=== PATIENT | male | born 1930 | race Caucasian/White ===

== ENCOUNTER 2017-02-10 17:34 | Inpatient (IN) | payer MEDICARE ==
[2017-02-10] MEDS ORDERED: Sterile Water 10 ML ONE (18:27)
[2017-02-10] MEDS ORDERED: methylPREDNISolone Sod Succ/PF 125 MG/2 ML VIAL ONE (18:27)
[2017-02-10 18:32] LABS: #Basophils 0.1 thou/uL (0.0-0.2); #Eosinphils 0.5 thou/uL (0.0-0.7); #Lymphocytes 2.2 thou/uL (1.20-3.40); #Monocytes 1.6 thou/uL (0.11-0.59); #Neutrophils 9.4 thou/uL (1.40-6.50); %Basophils 0.5 % (0.0-1.0); %Eosinophils 3.6 % (0.0-10.0); %Lymphocytes 15.8 % (21.0-51.0); %Monocytes 11.6 % (0.0-10.0); Hematocrit 47.5 % (42.0-52.0); Mean Platelet Volume 6.2 fL (7.4-10.4); Red Blood Cell (RBC) Count 4.83 mill/uL (4.70-6.10); White Blood Cell (WBC) Count 13.6 thou/uL (4.8-10.8)
[2017-02-10 18:56] LABS: ALT (SGPT) 16 U/L (8-55); AST (SGOT) 23 U/L (5-34); Alkaline Phosphatase 117 U/L (40-150); Anion Gap 9 mmol/L (10-20); BUN (Urea Nitrogen) 15 mg/dL (8.4-25.7); Bilirubin, Total 0.8 mg/dL (0.2-1.2); CK (CPK) 22 U/L (30-200); Calc. Creatinine Clearance 0 mL/min (70-130); Carbon Dioxide 27 mmol/L (23-31); Chloride 102 mmol/L (98-107); Estimated GFR-MDRD Greater than 90; Globulin 3.1 g/dL (2.4-3.5); Protein, Total 6.3 g/dL (5.8-8.1)
[2017-02-10 19:01] LABS: Troponin I Less than 0.010 ng/mL (< 0.028)
--- NOTE | 2017-02-10 19:01 | RAD ---
AP CHEST: Date: 02-10-17 Comparison: 01-05-17 FINDINGS: AP chest demonstrates a dual-lead intracardiac pacing device. Cardiomegaly is seen. There is diffuse increased interstitial markings throughout the lungs, more prominent than on the pr evious comparison exam. This may represent interstitial edema or increasing interstitial changes. No evidence of effusions seen. No evidence of pneumothorax seen. There may be some diffuse airspace op acities also seen. IMPRESSION: Continued diffuse interstitial markings. This appears to have slightly increased since the previous comparison exam from approximately 1 month earlier. POS: [facility]
[2017-02-10] MEDS ORDERED: Albuterol Sulfate 2.5 mg/0.5 ml Neb ONE (19:22)
[2017-02-10] MEDS ORDERED: Albuterol Sulfate 2.5 mg/3 ml Neb ONE ×2 (19:23)
[2017-02-10] MEDS ORDERED: Levofloxacin 500 mg/D5W 100 ml Premix Bag ONE (21:04)
[2017-02-10] MEDS ORDERED: diphenhydrAMINE 25 MG CAP ONE (21:54)
[2017-02-10] MEDS ORDERED: HumaLOG 300 UNITS/3 ML VIAL SC PRN (23:26)
[2017-02-10] MEDS ORDERED: Dextrose 50% Abboject 50 ML SYRINGE SLOW IVP PRN (23:26)
[2017-02-10] MEDS ORDERED: Senokot 8.6 MG TAB PO PRN (23:26)
[2017-02-10] MEDS ORDERED: Ondansetron HCl/PF 4 MG/2 ML Vial IVP PRN (23:26)
[2017-02-10] MEDS ORDERED: Milk Of Magnesia 30 ML UDCUP PO PRN (23:26)
[2017-02-10] MEDS ORDERED: Zolpidem Tartrate 5 MG TAB PO PRN (23:26)
[2017-02-10] MEDS ORDERED: Hydrocortisone 1% Cream 1.5 GM Packet TOP PRN (23:26)
[2017-02-10] MEDS ORDERED: diphenhydrAMINE 25 MG CAP PO PRN (23:26)
[2017-02-10] MEDS ORDERED: Loperamide HCl 2 MG CAP PO PRN (23:26)
[2017-02-10] MEDS ORDERED: Dextrose 5% in Water 1,000 ML IV PRN (23:26)
[2017-02-10] MEDS ORDERED: Acetaminophen 325 MG TAB PO PRN (23:26)
[2017-02-10] MEDS ORDERED: Mag-Al 1200 mg/1200 mg/30 ML UDCUP PO PRN (23:26)
[2017-02-10] MEDS ORDERED: HYDROcodone/Acetaminophen 5/325 mg Tablet PO PRN (23:26)
[2017-02-11 00:10] VITALS: BMI 29.0
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
[2017-02-11] MEDS: Benzonatate 100 MG CAP PO PRN ×5 (02:03→21:34)
[2017-02-11 05:09] LABS: #Eosinphils 0.1 thou/uL (0.0-0.7); #Lymphocytes 0.8 thou/uL (1.20-3.40); #Monocytes 0.2 thou/uL (0.11-0.59); %Eosinophils 0.6 % (0.0-10.0); %Lymphocytes 5.8 % (21.0-51.0); %Monocytes 1.6 % (0.0-10.0); Hematocrit 47.3 % (42.0-52.0); Mean Platelet Volume 6.3 fL (7.4-10.4); Red Blood Cell (RBC) Count 4.77 mill/uL (4.70-6.10)
[2017-02-11 05:20] LABS: ALT (SGPT) 16 U/L (8-55); AST (SGOT) 26 U/L (5-34); Alkaline Phosphatase 117 U/L (40-150); Anion Gap 12 mmol/L (10-20); BUN (Urea Nitrogen) 15 mg/dL (8.4-25.7); Bilirubin, Total 0.7 mg/dL (0.2-1.2); Calc. Creatinine Clearance 96 mL/min (70-130); Calcium 9.2 mg/dL (7.8-10.44); Carbon Dioxide 24 mmol/L (23-31); Chloride 100 mmol/L (98-107); Estimated GFR-MDRD Greater than 90; Globulin 3.4 g/dL (2.4-3.5); Protein, Total 6.6 g/dL (5.8-8.1)
[2017-02-11] MEDS: Mometasone/Formoterol 120 PUFF INHALER INH SCH ×2 (06:30→20:01)
[2017-02-11] MEDS: Famotidine 20 MG TAB PO SCH ×2 (07:32→21:34)
[2017-02-11] MEDS: Enoxaparin Sodium 40 MG/0.4 ML SYRINGE SC SCH (07:32)
[2017-02-11] MEDS: guaiFENesin ER 600 MG TAB PO SCH ×2 (07:32→21:34)
[2017-02-11] MEDS: Tamsulosin HCl 0.4 MG CAP PO SCH (07:32)
[2017-02-11] MEDS: Cefepime 2 GM, Admixture Fee 1 EACH in Sodium Chloride 0.9% 100 ML IVPB SCH ×2 (08:33→22:18)
[2017-02-11] MEDS: Azithromycin 250 MG TAB PO SCH (08:49)
--- NOTE | 2017-02-11 10:19 | PDOC.PN ---
- Subjective Encounter Start Date: 02/11/17 Encounter Start Time: 08:40 Subjective: breathing better this morning -: no sob or wheezing now - Objective Resuscitation Status: Resuscitation Status FULL:Full Resuscitation MAR Reviewed: Yes Vital Signs & Weight: Vital Signs (12 hours) Temp Pulse Resp BP BP Pulse Ox 02/11/17 07:38 97.8 F 78 16 02/11/17 07:13 97.5 F L 80 16 132/82 91 L 02/11/17 06:30 78 16 95 02/11/17 04:00 97.8 F 79 18 126/73 93 L 02/11/17 01:26 63 18 92 L 02/11/17 00:18 97.8 F 73 22 H 02/11/17 00:00 97.8 F 73 22 H 96/59 L 93 L 02/10/17 23:26 92 L Weight Weight 220 lb I&O: 02/10/17 02/11/17 02/12/17 06:59 06:59 06:59 Intake Total 600 Balance 600 Result Diagrams: 02/11/17 04:54 02/11/17 04:54 Additional Labs: Accuchecks 02/11/17 03:20 POC Glucose 194 H Phys Exam - Physical Examination HEENT: PERRLA, moist MMs Neck: no JVD, supple Respiratory: no wheezing rhonchi+ Cardiovascular: RRR, no significant murmur Gastrointestinal: soft, non-tender, positive bowel sounds Musculoskeletal: no edema, pulses present Neurological: non-focal, moves all 4 limbs Psychiatric: A&O x 3 Dx/Plan (1) Acute and chronic respiratory failure with hypoxia Code(s): J96.21 - ACUTE AND CHRONIC RESPIRATORY FAILURE WITH HYPOXIA Status: Acute (2) Interstitial lung disease Code(s): J84.9 - INTERSTITIAL PULMONARY DISEASE, UNSPECIFIED Status: Chronic (3) DM type 2 (diabetes mellitus, type 2) Status: Chronic Qualifiers: Diabetes mellitus complication status: with unspecified complications Diabetes mellitus long term acute care registered nurse insulin use: without long term acute care registered nurse use Qualified Code( s): E11.8 - Type 2 diabetes mellitus with unspecified complications (4) HTN (hypertension) Code(s): I10 - ESSENTIAL (PRIMARY) HYPERTENSION Status: Chronic Qualifiers: Hypertension type: essential hypertension Qualified Code(s): I10 - Essential (primary) hypertension (5) CAD (coronary artery disease) Code(s): I25.10 - ATHSCL HEART DISEASE OF [place] CORONARY ARTERY W/O ANG PCTRS Status: Chronic Qualifiers: Coronary Disease-Associated Artery/Lesion type: [place] artery [place] vs. transplanted heart: [place] heart Associated angina: without angina Qualified Code(s): I25.10 - Atherosclerotic heart disease of [place] coronary artery without angina pectoris (6) Dyslipidemia Code(s): E78.5 - HYPERLIPIDEMIA, UNSPECIFIED Status: Chronic (7) Pacemaker Code(s): Z95.0 - PRESENCE OF CARDIAC PACEMAKER Status: Chronic - Plan is on cefepime -: duonebs, solumedrol iv q6h -: echo, pulm consultation -: to ambulate as tolerated -: is currently on nasal canula * . Review of Systems - Medications/Allergies Allergies/Adverse Reactions: Allergies Allergy/AdvReac Type Severity Reaction Status Date / Time penicillin G Allergy Unverified 02/10/17 23:37 Medications: Current Medications Acetaminophen (Tylenol) 650 mg PO Q4H PRN PRN Reason: Headache/Fever or Pain Hydrocodone Bitart/Acetaminophen ([place] 5/325) 1 tab PO Q4H PRN PRN Reason: Moderate Pain (4-6) Al Hydroxide/Mg Hydroxide (Maalox) 30 ml PO Q6H PRN PRN Reason: Heartburn or Indigestion Albuterol/Ipratropium (Duoneb) 3 ml NEB [id number] [facility] Last Admin: 02/11/17 06:30 Dose: 3 ml Aspirin (Aspirin Chewable) 81 mg PO DAILY [facility] Last Admin: 02/11/17 07:32 Dose: 81 mg Azithromycin (Zithromax) 250 mg PO DAILY [facility] Stop: 02/14/17 09:01 Last Admin: 02/11/17 08:49 Dose: 250 mg Benzonatate (Tessalon) 100 mg PO Q4H PRN PRN Reason: Cough Last Admin: 02/11/17 08:42 Dose: 100 mg Dextrose/Water (Dextrose 50%) 25 gm SLOW IVP PRN PRN PRN Reason: Hypoglycemia Diphenhydramine HCl (Benadryl) 25 mg PO Q6H PRN PRN Reason: Itching & Insomnia Enoxaparin Sodium (Lovenox) 40 mg SC 0900 [facility] Last Admin: 02/11/17 07:32 Dose: 40 mg Famotidine (Pepcid) 20 mg PO BID [facility] Last Admin: 02/11/17 07:32 Dose: 20 mg Glucagon (Glucagon) 1 mg IM PRN PRN PRN Reason: Hypoglycemia Guaifenesin (Mucinex) 600 mg PO Q12HR [facility] Last Admin: 02/11/17 07:32 Dose: 600 mg Hydrocortisone Sodium Succinate (Hydrocortisone 1%) 1.5 gm TOP BIDPRN PRN PRN Reason: Allergies Cefepime HCl 2 gm/Miscellaneous Medication 1 each/ Sodium Chloride 100 mls @ 200 mls/hr IVPB Q12HR [facility] Last Admin: 02/11/17 08:33 Dose: 100 mls Dextrose/Water (D5w) 1,000 mls @ 0 mls/hr IV .Q0M PRN; As Directed PRN Reason: Hypoglycemia Insulin Human Lispro (Humalog) 0 units SC .MODERATE SLIDING SC PRN PRN Reason: Moderate Correctional Scale Insulin Human Lispro (Humalog) 0 units SC .BEDTIME SLIDING SC PRN PRN Reason: Bedtime Correctional Scale Loperamide HCl (Imodium) 2 mg PO PRN PRN PRN Reason: Diarrhea/Loose Stools Magnesium Hydroxide (Milk Of Magnesium) 30 ml PO DAILYPRN PRN PRN Reason: Constipation Methylprednisolone Sodium Succinate (Solu-Medrol) 40 mg IVP Q6HR [facility] Last Admin: 02/11/17 05:59 Dose: 40 mg Mometasone Furoate/Formoterol Fumar (Dulera 200 Mcg/5 Mcg Inhaler) 2 puff INH BID-RT [facility] Last Admin: 02/11/17 06:30 Dose: 2 puff Ondansetron HCl (Zofran Odt) 4 mg PO Q6H PRN PRN Reason: Nausea/Vomiting Ondansetron HCl (Zofran) 4 mg IVP Q6H PRN PRN Reason: Nausea/Vomiting Pravastatin Sodium (Pravachol) 80 mg PO HS [facility] Senna (Senokot) 2 tab PO HSPRN PRN PRN Reason: Constipation Sodium Chloride (Flush - Normal Saline) 10 ml IVF Q12HR [facility] Last Admin: 02/11/17 08:49 Dose: 10 ml Sodium Chloride (Flush - Normal Saline) 10 ml IVF PRN PRN PRN Reason: Saline Flush Tamsulosin HCl (Flomax) 0.4 mg PO DAILY [facility] Last Admin: 02/11/17 07:32 Dose: 0.4 mg Zolpidem Tartrate (Ambien) 5 mg PO HSPRN PRN PRN Reason: Insomnia
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
[2017-02-11] MEDS: Ondansetron ODT 4 MG TAB PO PRN (17:10)
[2017-02-11] MEDS: Pravastatin Sodium 40 MG TAB PO SCH (21:34)
[2017-02-12] MEDS: Mometasone/Formoterol 120 PUFF INHALER INH SCH ×2 (07:10→18:32)
[2017-02-12] MEDS: Tamsulosin HCl 0.4 MG CAP PO SCH (07:51)
[2017-02-12] MEDS: Famotidine 20 MG TAB PO SCH ×2 (07:51→19:56)
[2017-02-12] MEDS: guaiFENesin ER 600 MG TAB PO SCH ×2 (07:51→19:56)
[2017-02-12] MEDS: Enoxaparin Sodium 40 MG/0.4 ML SYRINGE SC SCH (07:51)
[2017-02-12] MEDS: Azithromycin 250 MG TAB PO SCH (07:51)
[2017-02-12] MEDS: Benzonatate 100 MG CAP PO PRN (07:51)
[2017-02-12] MEDS: Cefepime 2 GM, Admixture Fee 1 EACH in Sodium Chloride 0.9% 100 ML IVPB SCH ×2 (09:09→19:57)
--- NOTE | 2017-02-12 10:36 | PDOC.PN ---
- Subjective Encounter Start Date: 02/12/17 Encounter Start Time: 07:15 Subjective: at bedside, he had rough night with acting out -: wants to know if steroids could be reduced -: pt is awake, not in distress - Objective Resuscitation Status: Resuscitation Status FULL:Full Resuscitation MAR Reviewed: Yes Vital Signs & Weight: Vital Signs (12 hours) Temp Pulse Resp BP BP Pulse Ox 02/12/17 08:00 97.4 F L 98 18 02/12/17 07:28 97.4 F L 98 18 109/69 97 02/12/17 07:10 84 16 93 L 02/12/17 07:09 84 16 93 L 02/12/17 05:48 97.5 F L 84 24 H 102/61 97 02/12/17 04:00 97.6 F 79 18 102/53 L 94 L 02/12/17 03:27 90 L 02/12/17 02:20 80 16 93 L 02/12/17 00:45 86 20 91 L 02/11/17 23:02 78 16 88 L Weight Weight 220 lb I&O: 02/11/17 02/12/17 02/13/17 06:59 06:59 06:59 Intake Total 600 700 Balance 600 700 Result Diagrams: 02/11/17 04:54 02/11/17 04:54 Additional Labs: Accuchecks 02/12/17 02/11/17 02/11/17 04:24 19:18 16:53 POC Glucose 221 H 242 H 287 H 02/11/17 11:05 POC Glucose 200 H Phys Exam - Physical Examination HEENT: PERRLA, moist MMs Neck: no JVD, supple Respiratory: no wheezing, no rales rhonchi+ Cardiovascular: RRR, no significant murmur Gastrointestinal: soft, non-tender, positive bowel sounds Musculoskeletal: no edema, pulses present Neurological: non-focal, moves all 4 limbs Dx/Plan (1) Acute and chronic respiratory failure with hypoxia Code(s): J96.21 - ACUTE AND CHRONIC RESPIRATORY FAILURE WITH HYPOXIA Status: Acute (2) Interstitial lung disease Code(s): J84.9 - INTERSTITIAL PULMONARY DISEASE, UNSPECIFIED Status: Chronic (3) DM type 2 (diabetes mellitus, type 2) Status: Chronic Qualifiers: Diabetes mellitus complication status: with unspecified complications Diabetes mellitus skilled nursing insulin use: without skilled nursing use Qualified Code( s): E11.8 - Type 2 diabetes mellitus with unspecified complications (4) HTN (hypertension) Code(s): I10 - ESSENTIAL (PRIMARY) HYPERTENSION Status: Chronic Qualifiers: Hypertension type: essential hypertension Qualified Code(s): I10 - Essential (primary) hypertension (5) CAD (coronary artery disease) Code(s): I25.10 - ATHSCL HEART DISEASE OF [place] CORONARY ARTERY W/O ANG PCTRS Status: Chronic Qualifiers: Coronary Disease-Associated Artery/Lesion type: [place] artery [place] vs. transplanted heart: [place] heart Associated angina: without angina Qualified Code(s): I25.10 - Atherosclerotic heart disease of [place] coronary artery without angina pectoris (6) Dyslipidemia Code(s): E78.5 - HYPERLIPIDEMIA, UNSPECIFIED Status: Chronic (7) Pacemaker Code(s): Z95.0 - PRESENCE OF CARDIAC PACEMAKER Status: Chronic - Plan on oral prednisone -: to amb with PT as tolerated -: duonebs, is on zithromax and cefepime -: low flow oxygen -: appears to have sun downing in addition to possible med effects * . Review of Systems - Medications/Allergies Allergies/Adverse Reactions: Allergies Allergy/AdvReac Type Severity Reaction Status Date / Time penicillin G Allergy Verified 02/11/17 21:34 Penicillins Allergy Verified 01/05/17 20:12 Medications: Current Medications Acetaminophen (Tylenol) 650 mg PO Q4H PRN PRN Reason: Headache/Fever or Pain Last Admin: 02/11/17 22:23 Dose: 650 mg Hydrocodone Bitart/Acetaminophen ([place] 5/325) 1 tab PO Q4H PRN PRN Reason: Moderate Pain (4-6) Al Hydroxide/Mg Hydroxide (Maalox) 30 ml PO Q6H PRN PRN Reason: Heartburn or Indigestion Albuterol/Ipratropium (Duoneb) 3 ml NEB [id number] [facility] Last Admin: 02/12/17 07:09 Dose: 3 ml Aspirin (Aspirin Chewable) 81 mg PO DAILY [facility] Last Admin: 02/12/17 07:51 Dose: 81 mg Azithromycin (Zithromax) 250 mg PO DAILY [facility] Stop: 02/14/17 09:01 Last Admin: 02/12/17 07:51 Dose: 250 mg Benzonatate (Tessalon) 100 mg PO Q4H PRN PRN Reason: Cough Last Admin: 02/12/17 07:51 Dose: 100 mg Dextrose/Water (Dextrose 50%) 25 gm SLOW IVP PRN PRN PRN Reason: Hypoglycemia Diphenhydramine HCl (Benadryl) 25 mg PO Q6H PRN PRN Reason: Itching & Insomnia Enoxaparin Sodium (Lovenox) 40 mg SC 0900 [facility] Last Admin: 02/12/17 07:51 Dose: 40 mg Famotidine (Pepcid) 20 mg PO BID [facility] Last Admin: 02/12/17 07:51 Dose: 20 mg Glucagon (Glucagon) 1 mg IM PRN PRN PRN Reason: Hypoglycemia Guaifenesin (Mucinex) 600 mg PO Q12HR [facility] Last Admin: 02/12/17 07:51 Dose: 600 mg Hydrocortisone Sodium Succinate (Hydrocortisone 1%) 1.5 gm TOP BIDPRN PRN PRN Reason: Allergies Cefepime HCl 2 gm/Miscellaneous Medication 1 each/ Sodium Chloride 100 mls @ 200 mls/hr IVPB Q12HR [facility] Last Admin: 02/12/17 09:09 Dose: 100 mls Dextrose/Water (D5w) 1,000 mls @ 0 mls/hr IV .Q0M PRN; As Directed PRN Reason: Hypoglycemia Insulin Human Lispro (Humalog) 0 units SC .MODERATE SLIDING SC PRN PRN Reason: Moderate Correctional Scale Insulin Human Lispro (Humalog) 0 units SC .BEDTIME SLIDING SC PRN PRN Reason: Bedtime Correctional Scale Loperamide HCl (Imodium) 2 mg PO PRN PRN PRN Reason: Diarrhea/Loose Stools Magnesium Hydroxide (Milk Of Magnesium) 30 ml PO DAILYPRN PRN PRN Reason: Constipation Mometasone Furoate/Formoterol Fumar (Dulera 200 Mcg/5 Mcg Inhaler) 2 puff INH BID-RT [facility] Last Admin: 02/12/17 07:10 Dose: 2 puff Ondansetron HCl (Zofran Odt) 4 mg PO Q6H PRN PRN Reason: Nausea/Vomiting Last Admin: 02/11/17 17:10 Dose: 4 mg Ondansetron HCl (Zofran) 4 mg IVP Q6H PRN PRN Reason: Nausea/Vomiting Pravastatin Sodium (Pravachol) 80 mg PO HS [facility] Last Admin: 02/11/17 21:34 Dose: 80 mg Prednisone (Prednisone) 20 mg PO QAM-WM [facility] Senna (Senokot) 2 tab PO HSPRN PRN PRN Reason: Constipation Sodium Chloride (Flush - Normal Saline) 10 ml IVF Q12HR [facility] Last Admin: 02/12/17 09:04 Dose: 10 ml Sodium Chloride (Flush - Normal Saline) 10 ml IVF PRN PRN PRN Reason: Saline Flush Tamsulosin HCl (Flomax) 0.4 mg PO DAILY [facility] Last Admin: 02/12/17 07:51 Dose: 0.4 mg Zolpidem Tartrate (Ambien) 5 mg PO HSPRN PRN PRN Reason: Insomnia
[2017-02-12] MEDS ORDERED: Furosemide 40 MG/4 ML VIAL SLOW IVP SCH (14:45)
--- NOTE | 2017-02-12 15:06 | PRG ---
DATE OF SERVICE: 02/13/2017 SERVICE: Pulmonary Medicine. INTERVAL HISTORY: The patient is doing okay from a respiratory standpoint. He is yet to be too ter ribly active. At home, he had horrendous dyspnea whenever he did make small movements. He currentl y denies any fevers, chills, nausea or vomiting. He is coughing up pale yellow mucus. PHYSICAL EXAMINATION: VITAL SIGNS: Afebrile, pulse 85, blood pressure 109/69, respirations 16, saturation 96% on 3 liters nasal cannula. GENERAL: The patient is awake and alert, in no apparent distress. LUNGS: Bilateral crackles are present. This is both anterior and posterior. No prolonged expirato ry phase or wheezing is appreciated. HEART: Normal rate, irregular. ABDOMEN: Soft, nontender, and nondistended. Bowel sounds positive. MUSCULOSKELETAL: No cyanosis or clubbing. Minimal edema in the bilateral lower extremities is pres ent. GENITOURINARY: No [place]. NEUROLOGIC: Grossly nonfocal. LABORATORY DATA: WBC 13.0, hemoglobin 15.9, and platelets 167,000. BNP 118. Basic metabolic profi le and liver function studies were previously unremarkable. Blood sugar ranges from 200-287. ASSESSMENT: 1. Acute on chronic hypoxic respiratory failure. 2. Interstitial lung disease, suspect idiopathic pulmonary fibrosis with acute exacerbation. 3. Chronic diastolic heart failure. PLAN: The patient will continue antibiotics and steroid therapy. Oxygen to keep saturations greate r than 88%. We will get physical therapy involved and see if we can get the patient moving to make certain, he does not develop any deconditioning while he is here. I will provide him with 1 dose of Lasix today.
[2017-02-12] MEDS: Pravastatin Sodium 40 MG TAB PO SCH (19:56)
[2017-02-13] MEDS: Mometasone/Formoterol 120 PUFF INHALER INH SCH ×2 (06:23→19:20)
[2017-02-13] MEDS ORDERED: predniSONE 20 MG TAB PO SCH (08:00)
[2017-02-13] MEDS: Tamsulosin HCl 0.4 MG CAP PO SCH ×2 (10:09→14:18)
[2017-02-13] MEDS: predniSONE 20 MG TAB PO SCH ×2 (10:10→14:16)
[2017-02-13] MEDS: Famotidine 20 MG TAB PO SCH ×3 (10:11→20:24)
[2017-02-13] MEDS: Ondansetron ODT 4 MG TAB PO PRN (10:11)
[2017-02-13] MEDS: Azithromycin 250 MG TAB PO SCH ×2 (10:11→14:17)
[2017-02-13] MEDS: Furosemide 40 MG/4 ML VIAL SLOW IVP SCH (10:13)
[2017-02-13] MEDS: Enoxaparin Sodium 40 MG/0.4 ML SYRINGE SC SCH ×2 (10:13→14:17)
[2017-02-13] MEDS: Cefepime 2 GM, Admixture Fee 1 EACH in Sodium Chloride 0.9% 100 ML IVPB SCH ×2 (10:13→20:23)
--- NOTE | 2017-02-13 12:01 | PDOC.PN ---
- Subjective Encounter Start Date: 02/13/17 Encounter Start Time: 08:20 -: old records requested/rev Patient seen and examined. No new complaints. No overnight events - Objective Resuscitation Status: Resuscitation Status FULL:Full Resuscitation MAR Reviewed: Yes Vital Signs & Weight: Vital Signs (12 hours) Temp Pulse Resp BP Pulse Ox 02/13/17 11:34 97.8 F 86 22 H 158/83 H 89 L 02/13/17 09:35 75 20 92 L 02/13/17 07:40 97.9 F 88 20 129/59 L 92 L 02/13/17 06:23 81 18 91 L 02/13/17 06:19 81 18 91 L 02/13/17 02:33 96 Weight Weight 220 lb I&O: 02/12/17 02/13/17 02/14/17 06:59 06:59 06:59 Intake Total 700 300 120 Output Total 1800 800 Balance 700 -1500 -680 Result Diagrams: 02/11/17 04:54 02/11/17 04:54 Additional Labs: Accuchecks 02/13/17 02/13/17 02/12/17 11:15 05:01 19:24 POC Glucose 118 H 123 H 139 H 02/12/17 16:42 POC Glucose 185 H Phys Exam - Physical Examination Constitutional: NAD HEENT: PERRLA, moist MMs, sclera anicteric Neck: no JVD, supple Respiratory: no wheezing, no rhonchi basal rales Cardiovascular: RRR, no significant murmur, no rub Gastrointestinal: soft, non-tender, no distention, positive bowel sounds Musculoskeletal: no edema, pulses present Neurological: non-focal, normal sensation Lymphatic: no nodes Psychiatric: normal affect, A&O x 3 Skin: no rash, normal turgor Dx/Plan (1) Acute and chronic respiratory failure with hypoxia Code(s): J96.21 - ACUTE AND CHRONIC RESPIRATORY FAILURE WITH HYPOXIA Status: Acute (2) CAD (coronary artery disease) Code(s): I25.10 - ATHSCL HEART DISEASE OF [place] CORONARY ARTERY W/O ANG PCTRS Status: Chronic Qualifiers: Coronary Disease-Associated Artery/Lesion type: [place] artery [place] vs. transplanted heart: [place] heart Associated angina: without angina Qualified Code(s): I25.10 - Atherosclerotic heart disease of [place] coronary artery without angina pectoris (3) Chronic diastolic (congestive) heart failure Code(s): I50.32 - CHRONIC DIASTOLIC (CONGESTIVE) HEART FAILURE Status: Chronic (4) DM type 2 (diabetes mellitus, type 2) Status: Chronic Qualifiers: Diabetes mellitus complication status: with unspecified complications Diabetes mellitus usp insulin use: without salvage determiner use Qualified Code( s): E11.8 - Type 2 diabetes mellitus with unspecified complications (5) Dyslipidemia Code(s): E78.5 - HYPERLIPIDEMIA, UNSPECIFIED Status: Chronic (6) HTN (hypertension) Code(s): I10 - ESSENTIAL (PRIMARY) HYPERTENSION Status: Chronic Qualifiers: Hypertension type: essential hypertension Qualified Code(s): I10 - Essential (primary) hypertension (7) Interstitial lung disease Code(s): J84.9 - INTERSTITIAL PULMONARY DISEASE, UNSPECIFIED Status: Chronic (8) Pacemaker Code(s): Z95.0 - PRESENCE OF CARDIAC PACEMAKER Status: Chronic - Plan cont current plan of care, continue antibiotics, respiratory therapy * steroid changed to po prednisone * continue oxygen * continue PT * medication reviewed as below * symptomatic treatment * pt does not want to go to SNU on discharge * slowly improving to baseline. * continue cefepime and azithromycin Review of Systems - Review of Systems Constitutional: Weakness. negative: Fever, Chills, Sweats, Malaise, Other Respiratory: Cough, Shortness of Breath. negative: Dry, Hemoptysis, SOB with Excertion, Pleuritic Pain, Sputum, Wheezing Cardiovascular: negative: Chest Pain, Palpitations, Orthopnea, Paroxysmal Noc. Dyspnea, Edema, Light Headedness, Other Gastrointestinal: negative: Nausea, Vomiting, Abdominal Pain, Diarrhea, Constipation, Melena, Hematochezia, Other Genitourinary: negative: Dysuria, Frequency, Incontinence, Hematuria, Retention , Other Musculoskeletal: negative: Neck Pain, Shoulder Pain, Arm Pain, Back Pain, Hand Pain, Leg Pain, Foot Pain, Other Skin: negative: Rash, Lesions, Vishal, Bruising, Other - Medications/Allergies Allergies/Adverse Reactions: Allergies Allergy/AdvReac Type Severity Reaction Status Date / Time penicillin G Allergy Verified 02/11/17 21:34 Penicillins Allergy Verified 01/05/17 20:12 Medications: Current Medications Acetaminophen (Tylenol) 650 mg PO Q4H PRN PRN Reason: Headache/Fever or Pain Last Admin: 02/11/17 22:23 Dose: 650 mg Hydrocodone Bitart/Acetaminophen ([place] 5/325) 1 tab PO Q4H PRN PRN Reason: Moderate Pain (4-6) Al Hydroxide/Mg Hydroxide (Maalox) 30 ml PO Q6H PRN PRN Reason: Heartburn or Indigestion Albuterol/Ipratropium (Duoneb) 3 ml NEB C1LL-WH [facility] Last Admin: 02/13/17 09:35 Dose: 3 ml Aspirin (Aspirin Chewable) 81 mg PO DAILY [facility] Last Admin: 02/13/17 10:11 Dose: 81 mg Azithromycin (Zithromax) 250 mg PO DAILY [facility] Stop: 02/14/17 09:01 Last Admin: 02/13/17 10:11 Dose: 250 mg Dextrose/Water (Dextrose 50%) 25 gm SLOW IVP PRN PRN PRN Reason: Hypoglycemia Diphenhydramine HCl (Benadryl) 25 mg PO Q6H PRN PRN Reason: Itching & Insomnia Enoxaparin Sodium (Lovenox) 40 mg SC 0900 [facility] Last Admin: 02/13/17 10:13 Dose: 40 mg Famotidine (Pepcid) 20 mg PO BID [facility] Last Admin: 02/13/17 10:11 Dose: 20 mg Furosemide (Lasix) 40 mg SLOW IVP DAILY [facility] Last Admin: 02/13/17 10:13 Dose: 40 mg Glucagon (Glucagon) 1 mg IM PRN PRN PRN Reason: Hypoglycemia Guaifenesin (Mucinex) 600 mg PO Q12HR [facility] Last Admin: 02/13/17 10:10 Dose: 600 mg Hydrocortisone Sodium Succinate (Hydrocortisone 1%) 1.5 gm TOP BIDPRN PRN PRN Reason: Allergies Cefepime HCl 2 gm/Miscellaneous Medication 1 each/ Sodium Chloride 100 mls @ 200 mls/hr IVPB Q12HR [facility] Last Admin: 02/13/17 10:13 Dose: 100 mls Dextrose/Water (D5w) 1,000 mls @ 0 mls/hr IV .Q0M PRN; As Directed PRN Reason: Hypoglycemia Insulin Human Lispro (Humalog) 0 units SC .MODERATE SLIDING SC PRN PRN Reason: Moderate [place] Scale Insulin Human Lispro (Humalog) 0 units SC .BEDTIME SLIDING SC PRN PRN Reason: Bedtime [place] Scale Loperamide HCl (Imodium) 2 mg PO PRN PRN PRN Reason: Diarrhea/Loose Stools Magnesium Hydroxide (Milk Of Magnesium) 30 ml PO DAILYPRN PRN PRN Reason: Constipation Mometasone Furoate/Formoterol Fumar (Dulera 200 Mcg/5 Mcg Inhaler) 2 puff INH BID-RT [facility] Last Admin: 02/13/17 06:23 Dose: 2 puff Ondansetron HCl (Zofran Odt) 4 mg PO Q6H PRN PRN Reason: Nausea/Vomiting Last Admin: 02/13/17 10:11 Dose: 4 mg Ondansetron HCl (Zofran) 4 mg IVP Q6H PRN PRN Reason: Nausea/Vomiting Pravastatin Sodium (Pravachol) 80 mg PO HS [facility] Last Admin: 02/12/17 19:56 Dose: 80 mg Prednisone (Prednisone) 40 mg PO QAM-WM [facility] Last Admin: 02/13/17 10:10 Dose: 40 mg Senna (Senokot) 2 tab PO HSPRN PRN PRN Reason: Constipation Sodium Chloride (Flush - Normal Saline) 10 ml IVF Q12HR [facility] Last Admin: 02/13/17 10:12 Dose: 10 ml Sodium Chloride (Flush - Normal Saline) 10 ml IVF PRN PRN PRN Reason: Saline Flush Tamsulosin HCl (Flomax) 0.4 mg PO DAILY [facility] Last Admin: 02/13/17 10:09 Dose: 0.4 mg Zolpidem Tartrate (Ambien) 5 mg PO HSPRN PRN PRN Reason: Insomnia
--- NOTE | 2017-02-13 12:35 | PRG ---
DATE OF SERVICE: 02/13/2017 SERVICE: Pulmonary Medicine. INTERVAL HISTORY: The patient is doing fine from a cardiovascular and respiratory standpoint. He i s breathing comfortably this morning. He is not coughing up as much sputum. He is yet to be up and active. He has not walked about the room yet. Otherwise, there has been no interval change to his condition. There were no overnight events. PHYSICAL EXAMINATION: VITAL SIGNS: Afebrile, pulse 86, blood pressure 158/83, respirations 22, saturation 89% on 4 liters nasal cannula. GENERAL: Patient is awake, alert, no apparent distress. LUNGS: Decent air entry. Crackles are present throughout. There is no prolonged expiratory phase or wheezing. HEART: Normal rate, regular. ABDOMEN: Soft, nontender, and nondistended. Bowel sounds positive. MUSCULOSKELETAL: No cyanosis or clubbing. No pitting in the bilateral lower extremities. NEUROLOGIC: Grossly nonfocal. LABORATORY DATA: WBC 13.0, hemoglobin 15.9, platelets 167,000. Neutrophil count is 92%. Blood sug ars ranged from 118-221. IMAGING: Echocardiogram demonstrates normal ejection fraction with diastolic dysfunction. There is normal right ventricular size and function. ASSESSMENT: 1. Acute on chronic hypoxic respiratory failure. 2. Interstitial lung disease, suspected idiopathic pulmonary fibrosis with acute exacerbation. 3. Acute on chronic diastolic heart failure. PLAN: We will try to keep him on the snuff drier side of euvolemic. Pulmonary will continue to follow. Nebulized medications, steroids, and antibiotics will be continued for the time being and treatment of his suspected IPF exacerbation. Laboratories will be repeated tomorrow morning.
[2017-02-13] MEDS: guaiFENesin ER 600 MG TAB PO SCH ×2 (14:00→20:24)
[2017-02-13] MEDS: Pravastatin Sodium 40 MG TAB PO SCH (20:24)
[2017-02-13] MEDS: HumaLOG 300 UNITS/3 ML VIAL SC PRN (21:46)
[2017-02-14 04:19] LABS: #Eosinphils 0.1 thou/uL (0.0-0.7); #Monocytes 0.9 thou/uL (0.11-0.59); #Neutrophils 10.4 thou/uL (1.40-6.50); %Basophils 0.2 % (0.0-1.0); %Eosinophils 0.8 % (0.0-10.0); %Lymphocytes 8.2 % (21.0-51.0); %Monocytes 6.9 % (0.0-10.0); Hematocrit 43.5 % (42.0-52.0); Mean Platelet Volume 6.7 fL (7.4-10.4); Red Blood Cell (RBC) Count 4.43 mill/uL (4.70-6.10); White Blood Cell (WBC) Count 12.4 thou/uL (4.8-10.8)
[2017-02-14 04:22] LABS: Anion Gap 14 mmol/L (10-20); BUN (Urea Nitrogen) 18 mg/dL (8.4-25.7); Calc. Creatinine Clearance 92 mL/min (70-130); Calcium 8.9 mg/dL (7.8-10.44); Carbon Dioxide 28 mmol/L (23-31); Chloride 95 mmol/L (98-107); Estimated GFR-MDRD 87; Magnesium 2.2 mg/dL (1.6-2.6)
[2017-02-14] MEDS: HumaLOG 300 UNITS/3 ML VIAL SC PRN (05:35)
[2017-02-14] MEDS: Mometasone/Formoterol 120 PUFF INHALER INH SCH (05:55)
[2017-02-14] MEDS: Furosemide 40 MG/4 ML VIAL SLOW IVP SCH (09:04)
[2017-02-14] MEDS: Enoxaparin Sodium 40 MG/0.4 ML SYRINGE SC SCH (09:06)
[2017-02-14] MEDS: Cefepime 2 GM, Admixture Fee 1 EACH in Sodium Chloride 0.9% 100 ML IVPB SCH (09:06)
[2017-02-14] MEDS: Famotidine 20 MG TAB PO SCH (09:06)
[2017-02-14] MEDS: Tamsulosin HCl 0.4 MG CAP PO SCH (09:06)
[2017-02-14] MEDS: guaiFENesin ER 600 MG TAB PO SCH (09:16)
[2017-02-14] MEDS: Azithromycin 250 MG TAB PO SCH (09:16)
[2017-02-14] MEDS: predniSONE 20 MG TAB PO SCH (09:16)
[2017-02-14 11:47] VITALS: BP 124/79; TEMP 97.7
--- NOTE | 2017-02-14 12:45 | DIS ---
DATE OF ADMISSION: 02/10/2017 DATE OF DISCHARGE: 02/14/2017 PRIMARY CARE PHYSICIAN: Blu Tineo M.D. DISCHARGE DISPOSITION: Home. PRIMARY DISCHARGE DIAGNOSES: 1. Acute on chronic respiratory failure with hypoxia. 2. Exacerbation of interstitial lung disease. 3. Antibiotic-induced diarrhea. 4. Mild acute on chronic diastolic heart failure. SECONDARY DISCHARGE DIAGNOSES: Coronary artery disease, chronic respiratory failure with hypoxia, c hronic diastolic heart failure, diabetes type 2, dyslipidemia, hypertension, interstitial lung disea se, history of pacemaker, and physical deconditioning. PRIMARY PROCEDURE/OPERATION: None. RADIOLOGICAL INVESTIGATION: Chest x-ray showed bibasilar interstitial infiltration. Echocardiograp hy showed normal EF 60%-65% with diastolic dysfunction. SIGNIFICANT LABORATORY DATA: WBC 12.4, hemoglobin 14.5, platelets 158. Sodium 132, potassium 4.6, BUN 18, creatinine 0.84, calcium 8.9, and magnesium 2.2. LFT normal. BNP 118.4. Cardiac enzymes n egative. DISCHARGE MEDICATIONS: Omnicef 300 mg twice daily for 5 more days, aspirin 81 mg p.o. b.i.d., vitam in D3 1000 units p.o. b.i.d., vitamin B12 1000 mcg p.o. daily, Breo Ellipta one inhalation daily, La six 20 mg p.o. daily, Probiotic 1 capsule p.o. daily, Toprol-XL 50 mg p.o. daily, Dulera 2 puffs inh alation b.i.d., Protonix 40 mg p.o. daily, Phenergan with codeine 5 mL q.6 hourly p.r.n., Zocor 80 m g p.o. at bedtime, Flomax 0.4 mg p.o. daily, Mucinex 600 mg twice daily, and prednisone 40 mg p.o. d aily. CONTRAINDICATIONS: None. CODE STATUS: FULL CODE. INPATIENT PRODUCT ASSURANCE ENGINEER: Dr. Ceja was consulted while in hospital. TEST RESULTS PENDING ON DISCHARGE: None. ALLERGIES: PENICILLIN. DISCHARGE PLAN: Post hospital, patient is advised to follow up with Dr. Ceja in 1 week. Patient already has appointment with Dr. Blu Tineo on 02/18/2017 at 9:00 a.m. The patient also has an appointment with Dr. Vargas. HOSPITAL COURSE: An 86-year-old male who has interstitial lung disease who had regular followup vis it with Dr. Blu Tineo where patient was found hypoxic and that is [facility] In the emergency room, chest x-ray showed bilateral interstitial infiltration. This p atient was hypoxic in the emergency room and that is why he required admission. This patient was ad mitted initially to medical floor. He had elevated BNP and that is why we did echocardiography, whi ch showed diastolic dysfunction. This patient was treated with broad spectrum antibiotic therapy wi th cefepime, Levaquin and IV steroid. Dr. Ceja and Dr. Pope were consulted while in hospital. Subsequently, antibiotic therapy was changed to Omnicef. Patient was also given oral prednisone t herapy. Patient also had mild diastolic CHF and that is why he was given Lasix and on discharge we changed to p.o. Lasix. This patient is pretty much adamant to go home today. While in hospital, he had some antibiotic ind uced diarrhea and that is why we are trying to rule out C. diff infection before he goes home, but o therwise the patient wants to go home no matter what today. I spoke with Dr. Ceja and he also cleared him for discharge and he will follow up with the patien t after discharge, the patient is advised to use oxygen all the time. Patient will continue above-m entioned medication until he sees Dr. Ceja. The patient is seen and examined at bedside today. All review of systems reviewed and negative exce pt patient has diarrhea. PHYSICAL EXAMINATION: VITAL SIGNS: Currently, temperature 97.7, pulse 84, respiratory rate 16, saturation 92%, and blood pressure 124/79. Weight 220 pounds. GENERAL: The patient is currently alert, awake, no acute distress. HEAD: Normocephalic, atraumatic. LUNGS: Clear. CARDIAC: S1 and S2 regular without any murmur. ABDOMEN: Soft and benign. EXTREMITIES: No edema. NEUROLOGIC: Nonfocal examination. Overall, this patient is medically stable for discharge today.
--- NOTE | 2017-02-14 16:34 | PRG ---
DATE OF SERVICE: 02/14/2017 SERVICE: Pulmonary Medicine. INTERVAL HISTORY: The patient is doing really quite well from a respiratory standpoint. That being said, he has had profuse diarrhea over the last 2 nights. Otherwise, there has been no interval ch faisal to his condition. His shortness of breath has returned to baseline. He continues to have a pe rsistent cough. Otherwise, there has been no interval change to his condition. PHYSICAL EXAMINATION: VITAL SIGNS: Afebrile, pulse 69, blood pressure 120/66, respirations 12, saturation 97% on 3 liters nasal cannula. GENERAL: Patient is awake, alert, in no apparent distress. LUNGS: Excellent air entry. No prolonged expiratory phase or wheezing. Crackles are present throu ghout. HEART: Normal rate, regular. ABDOMEN: Soft, nontender, nondistended. Bowel sounds positive. MUSCULOSKELETAL: No cyanosis or clubbing. No pitting in the bilateral lower extremities. NEUROLOGIC: Grossly nonfocal. LABORATORY DATA: WBC 12.4, hemoglobin 14.5, platelets 158,000. Sodium 132. Basic metabolic profil e is otherwise unremarkable. Bicarb has improved to 28. Magnesium is 2.2 and normal. C. diff anti gen and toxin are negative. ASSESSMENT: 1. Acute on chronic hypoxic respiratory failure, resolved to baseline. 2. Interstitial lung disease, suspected IPF with acute exacerbation. 3. Acute on chronic diastolic heart failure. PLAN: The patient can be transitioned out of the hospital. He did have dramatic improvement in sym ptoms with a couple small doses of Lasix. My suspicion is that he has a little bit of extra volume on top of very sick lungs. He is stable for transition out of the hospital provided that we continu e treating him with steroids for a period of 5 days. I would like him to follow up with me in the o utpatient setting in 2-4 weeks to reassess his respiratory status. Pulmonary Critical Care will con tinue to follow. Pulmonary will continue to follow if he remains in house.
== END 2017-02-14 13:25 | disposition home or self-care (01) | DRG 196 ==
LOC: ERS 17:34 → T4-A 20:55
PROVIDERS: ADMIT Internal Medicine; ATTEND Internal Medicine
DX: J84.9 Interstitial pulmonary disease, unspecified (principal); J96.21 Acute and chronic respiratory failure with hypoxia; I50.33 Acute on chronic diastolic (congestive) heart failure; K52.1 Toxic gastroenteritis and colitis; I11.0 Hypertensive heart disease with heart failure; I25.10 Atherosclerotic heart disease of native coronary artery without angina pectoris; N40.0 Benign prostatic hyperplasia without lower urinary tract symptoms; T78.40XA Allergy, unspecified, initial encounter; Z95.5 Presence of coronary angioplasty implant and graft; Z95.0 Presence of cardiac pacemaker; Z85.89 Personal history of malignant neoplasm of other organs and systems; Z88.0 Allergy status to penicillin; T36.8X5A Adverse effect of other systemic antibiotics, initial encounter; T36.95XA Adverse effect of unspecified systemic antibiotic, initial encounter; Y92.238 Other place in hospital as the place of occurrence of the external cause
CPT/HCPCS: 36415; 36416; 71010; 80048; 80053; 82550; 82553; 83735; 83880; 84484; 85025; 87324; 87449; 93005; 93306; 93798; 94640; 94760; 96365; 96375; A4216; G8978-GP-CM; G8979-GP-CK; J0692; J1650; J1940; J1956; J2920; J2930; J7050; J7506; J7611; J7620; Q0162

== ENCOUNTER 2017-05-20 15:55 | Inpatient (IN) | payer MEDICARE ==
[2017-05-20] MEDS ORDERED: Albuterol Sulfate 2.5 mg/3 ml Neb ONE (16:15)
[2017-05-20 16:26] LABS: #Basophils 0.1 thou/uL (0.0-0.2); #Eosinphils 0.8 thou/uL (0.0-0.7); #Monocytes 1.4 thou/uL (0.11-0.59); #Neutrophils 8.9 thou/uL (1.40-6.50); %Basophils 0.6 % (0.0-1.0); %Eosinophils 5.7 % (0.0-10.0); %Lymphocytes 21.1 % (21.0-51.0); %Neutrophils 62.6 % (42.0-75.0); Hemoglobin 15.7 g/dL (14.0-18.0); Mean Corpuscular HGB CONC 33.2 g/dL (32.0-36.0); Mean Corpuscular Hemoglobin 33.3 pg (27.0-31.0); Mean Platelet Volume 6.6 fL (7.4-10.4); Platelet Count 265 thou/uL (130-400); RBC Distribution Width 12.1 % (11.5-14.5); Red Blood Cell (RBC) Count 4.72 mill/uL (4.70-6.10); White Blood Cell (WBC) Count 14.2 thou/uL (4.8-10.8)
[2017-05-20 16:27] LABS: CO2 Tension 49.6 mmHg (35.0-45.0); O2 Tension (PaO2) 108.8 mmHg (80.0-100.0)
[2017-05-20 16:28] LABS: Actual Bicarbonate (HCO3a) 29.7 mEq/L (22-26); Analyzer IN Cardio ER; Base Excess (BEa) 3.7 mEq/L (0 (+/-) 2.5); Calcium, Ionized 1.2 mmol/L (1.12-1.30); Hematocrit-ABG 47.9 % (42.0-52.0); Hemoglobin (Hb) 15.2 g/dL (14.0-18.0); Puncture Site RRA
[2017-05-20 16:55] LABS: ALT (SGPT) 21 U/L (8-55); AST (SGOT) 23 U/L (5-34); Albumin 3.4 g/dL (3.4-4.8); Alkaline Phosphatase 130 U/L (40-150); Anion Gap 13 mmol/L (10-20); BUN (Urea Nitrogen) 11 mg/dL (8.4-25.7); Bilirubin, Total 0.8 mg/dL (0.2-1.2); CK (CPK) 22 U/L (30-200); Calc. Creatinine Clearance 0 mL/min (70-130); Calcium 9.5 mg/dL (7.8-10.44); Carbon Dioxide 29 mmol/L (23-31); Chloride 97 mmol/L (98-107); Estimated GFR-MDRD Greater than 90; Globulin 3.7 g/dL (2.4-3.5); Glucose 122 mg/dL (83-110); Lipase 9 U/L (8-78); Potassium 4.1 mmol/L (3.5-5.1); Protein, Total 7.1 g/dL (5.8-8.1); Sodium 135 mmol/L (136-145)
[2017-05-20 16:56] LABS: CKMB 0.8 ng/mL (0-6.6); Troponin I 0.016 ng/mL (< 0.028)
[2017-05-20] MEDS ORDERED: Dexamethasone 10 MG/ML VIAL ONE (17:05)
[2017-05-20] MEDS ORDERED: Magnesium Sulfate 2 GM/100 ML BAG ONE (17:06)
--- NOTE | 2017-05-20 17:48 | RAD ---
PORTABLE UPRIGHT FRONTAL CHEST RADIOGRAPH 05/20/17 COMPARISON: 02/10/17 HISTORY: Progressive shortness of breath. FINDINGS: Stable dual lead transvenous pacing device. No pneumothorax is seen. Shallow inspiration limits asses sment of the lung bases. There are increased linear interstitial densities noted in the perihilar reg ions and both lung bases, left greater than right, grossly unchanged and nonspecific. IMPRESSION: Shallow inspiration with interstitial prominence. Findings may all be chronic in nature. A degree of interstitial pulmonary edema cannot be excluded in the proper clinical setting. POS: [facility]
--- NOTE | 2017-05-20 20:04 | CT ---
CT OF PELVIS PERFORMED WITHOUT CONTRAST ENHANCEMENT: 05/20/17 HISTORY: Pelvic pain. Images included imaging through the scrotal region. There are arthritic changes of the lower lumbar s pine with marked disc narrowing at L5-S1 and bilateral pars defect and minimal spondylolisthesis. The bones appear demineralized. SI joints are symmetric. No fractures of the pelvis ring are seen. There is some mild arthritic changes of the hips. Mild mount of stool present in the rectum and sigmoid region. There is no pelvic lymphadenopathy or m ass. No free fluid. No signs of any abscess collection. Fat containing left inguinal hernia is seen. IMPRESSION: No acute abnormalities of the pelvis. POS: [facility]
[2017-05-20] MEDS ORDERED: Ondansetron ODT 4 MG TAB SL PRN (22:20)
[2017-05-20] MEDS ORDERED: Ondansetron HCl/PF 4 MG/2 ML Vial IVP PRN (22:20)
[2017-05-20] MEDS ORDERED: Sodium Chloride 0.9% 10 ML ONE (22:50)
[2017-05-20] MEDS: Sodium Chloride 0.9% 1,000 ML IV SCH (23:01)
[2017-05-21] MEDS ORDERED: FLU VACC TS2017-18 (>65YR) 0.5 ML SYRINGE IM ONE (01:00)
[2017-05-21] MEDS ORDERED: Acetaminophen 650 MG Suppository PR PRN (09:14)
[2017-05-21] MEDS ORDERED: Ondansetron HCl/PF 4 MG/2 ML Vial IVP PRN (09:14)
[2017-05-21] MEDS ORDERED: Bisacodyl 5 MG TAB PO PRN (09:14)
[2017-05-21] MEDS ORDERED: Vancomycin HCl 1 GM in Premix Bag 1 BAG IVPB SCH (09:30)
[2017-05-21] MEDS ORDERED: Vancomycin HCl 1.25 GM, Admixture Fee 1 EACH in Sodium Chloride 0.9% 250 ML 250 ML IVPB SCH (11:00)
[2017-05-21] MEDS: Sodium Chloride 0.9% 1,000 ML IV SCH (11:40)
[2017-05-21] MEDS ORDERED: Dextrose 50% Abboject 50 ML SYRINGE SLOW IVP PRN (12:39)
[2017-05-21] MEDS ORDERED: HumaLOG 300 UNITS/3 ML VIAL SC PRN (12:39)
[2017-05-21] MEDS ORDERED: Dextrose 5% in Water 1,000 ML IV PRN (12:39)
--- NOTE | 2017-05-21 12:59 | HP ---
PRIMARY CARE PHYSICIAN: Blu Tineo M.D. CHIEF COMPLAINT: Shortness of breath. HISTORY OF PRESENT ILLNESS: Mr. Hernandez is a pleasant 87-year-old gentleman who was seen at [facility] on 05/21/2017. He presented to the emergency room yesterday complaining of shortness of breath for one day prior to the presentation. He reports that he was hospitalized at this facility last week for COPD exacerbation. However, I am unable to find any documentation to that effect. He reports that he is on home oxygen on 3 liters. He also reports that his oxygen saturations were in the 70s at home with home oxygen and he did not know that the readings were abnormal. The patient was reportedly blue on arrival of the EMS and started improving oxygen saturations when oxygen was increased to 6 liters per minute. He denies fever, chills or chest pain. He reports cough that is productive of small amount of sputum. He denies any abdominal pain. He reports that he had had pain over his scrotum for the last couple of days. He reports that the pain is intense, 10/10 at its worst. No known aggravating or relieving factors. He denies any trauma or insect bite to the region. He has no other complaints. REVIEW OF SYSTEMS: The following complete review of systems was negative, unless otherwise mentioned in the HPI or below: Constitutional: Weight loss or gain, ability to conduct usual activities. Skin: Rash, itching. Eyes: Double vision, pain. ENT/Mouth: Nose bleeding, neck stiffness, pain, tenderness. Cardiovascular: Palpitations, dyspnea on exertion, orthopnea. Respiratory: Shortness of breath, wheezing, cough, hemoptysis, fever or night sweats. Gastrointestinal: Poor appetite, abdominal pain, heartburn, nausea, vomiting, constipation, or diarrhea. Genitourinary: Urgency, frequency, dysuria, nocturia. Musculoskeletal: Pain, swelling. Neurologic/Psychiatric: Anxiety, depression. Allergy/Immunologic: Skin rash, bleeding tendency. PAST MEDICAL HISTORY: Significant for diabetes mellitus, interstitial lung disease for which he sees Dr. Ceja, chronic respiratory failure with hypoxia , hypertension, obesity, benign prostate hypertrophy, coronary artery disease, and arrhythmia. 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 SOCIAL HISTORY: The patient reports occasional alcohol use. He denies any recreational drug use or tobacco use. CODE STATUS: I discussed his code status. He is FULL CODE. FAMILY HISTORY: He denies any family history of coronary artery disease. ALLERGIES: PENICILLIN. CURRENT MEDICATIONS: Pravastatin 80 mg daily, aspirin 81 mg daily, Flomax 0.4 mg daily. PHYSICAL EXAMINATION: GENERAL: On examination, Mr. Hernandez is awake and alert, not in acute distress. VITAL SIGNS: Blood pressure is 134/70, pulse is 87, he is breathing at rate of 20 and saturating 96% on 4 liters of oxygen. He is afebrile. EYES: No scleral icterus, no conjunctival pallor. ENT: Moist mucosal membranes, no oropharyngeal erythema or exudates. NECK: Supple, nontender, normal range of movement. Trachea is midline. RESPIRATORY: Accessory muscles of breathing are not active. Chest wall movements are symmetric bilaterally. Lung examination reveals few bibasilar crackles. CARDIOVASCULAR: S1 and S2 are heard, regular. Peripheral pulses palpable. No carotid bruit, no pericardial rub. ABDOMEN: Soft, nontender, bowel sounds heard, no hepatomegaly, no splenomegaly. NEUROLOGIC: Cranial nerves II-XII are intact. Deep tendon reflexes are 2+. PSYCHIATRIC: Normal mood, normal affect, patient is oriented to person, place and time. MUSCULOSKELETAL: Power is 5/5 in all 4 extremities. SKIN: He has erythema, tenderness, and elevated temperature of the scrotal wall. IMAGING DATA AND LABORATORY DATA: Mr. Hernandez's labs and investigations were reviewed. I reviewed his electrocardiogram, which shows sinus rhythm with occasional electronic AV paced complexes, no ST changes to suggest an acute coronary syndrome. I also reviewed his chest x-ray, which appears to show chronic interstitial fibrosis. Laboratory investigation showed leukocytosis with 14,200 white cells, of which 62.6% are neutrophils, normal hemoglobin, normal platelet count, decreased sodium of 135, normal potassium, normal creatinine, unremarkable liver profile, normal troponin I, normal BNP and arterial blood gases showing pH of 7.40, pCO2 of 49.6 and pO2 of 108. ASSESSMENT AND PLAN: Mr. Hernandez is a pleasant 87-year-old gentleman who was seen at [facility] on 05/21/2017. His problem list includes: 1. Acute on chronic respiratory failure: Mr. Hernandez is presenting with acute on chronic respiratory failure. This is most likely secondary to chronic interstitial lung disease. He will be admitted to the hospital. We will request Pulmonology Service consult for opinion and help with managing with Mr. Hernandez's problems. 2. Cellulitis of the scrotum. The patient has been started on vancomycin, we will continue vancomycin and request ID Service input. 3. Hyponatremia: Mild, we will recheck. 4. Diabetes mellitus type 2: Start Accu-Cheks, insulin sliding scale. 5. Hypertension: Monitor vital signs, titrate antihypertensives as needed. 6. Coronary artery disease: Stable. 7. Benign prostatic hypertrophy: Continue home medications. Many thanks for allowing me to participate in your patient's care. Please feel free to contact me with any questions or concerns. LEVEL OF RISK: High. LEVEL OF COMPLEXITY: High. MTDD
[2017-05-21] MEDS: Cefepime 1 GM, Admixture Fee 1 EACH in Sterile Water 10 ML SLOW IVP SCH (18:12)
--- NOTE | 2017-05-21 19:01 | CON ---
DATE OF CONSULTATION: 05/21/2017 REASON FOR CONSULTATION: Scrotal inflammatory process. HISTORY OF PRESENT ILLNESS: An 87-year-old who has a history of coronary artery disease, interstitia l lung disease on chronic prednisone, and inhalers, who was admitted with scrotal cellulitis. In 2016, he came in with chest pain and this was felt to be due to an atypical angina and was continued on medical management only. At that time, corticosteroids were added to his regimen. In January, he presented with acute on chronic respiratory failure with hypoxemia and antibiotic-induced diarrhea. Chest x-ray showed bibasilar interstitial infiltrates and echocardiogram with EF 60-65%. WBC count 12.4. He was discharged on Omnicef, aspirin, vitamin D, inhalers, Lasix, Toprol, Dulera, P rotonix. At this time, he presents with worsening dyspnea. He also has a 3-4 day history of progres sively worsening pain in the scrotal area with intertriginous maceration erythema. Initial findings blood pressure 137/70, pulse 87, O2 sat 96% on 4 liters. He had no fever. Lung exam with a few insp iratory crackles at the bases. Regular rate and rhythm. Peripheral pulses were palpable. Abdomen i s nontender and there is erythema and marked tenderness with some superficial erosions in the scrotal tissue. Currently, Mr. Hernandez appears to be coughing intermittently. He has no headaches, no visua l symptoms. No sore throat, odynophagia, dysphagia, no back pain, no chest pain, no abdominal pain, no diarrhea. He has some degree of incontinence. PAST MEDICAL HISTORY: Type 2 diabetes, interstitial lung disease, idiopathic BPH, coronary artery di sease. 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 SOCIAL HISTORY: Never a smoker. He is retired. He used to work as a builder. ALLERGIES: PENICILLIN. PHYSICAL EXAMINATION: VITAL SIGNS: T-max 98.3, blood pressure 140/60, pulse 88, respirations 24, O2 sat 94% on 3 liters na sapphire cannula, tachypneic at rest. GENERAL: He is awake, pleasant. SKIN: Remarkable for the findings in the scrotal skin with erythema and shallow areas of ulceration. There is intertriginous maceration extending towards the groin area and medial thigh. No Hensley cat heter. No lymphadenopathy. HEENT: Ocular movements are conjugate. Oral cavity with still quite a few teeth in place. Moist mu cosa. NECK: Supple, no jugular venous distention. LUNGS: With symmetric air entry, few crackles at the bases. HEART: S1, S2, regular rate. No S3 or S4. ABDOMEN: Soft, not distended or tender. Pacer pocket site appears normal. EXTREMITIES: No joint inflammatory activity. Pulses are 1+ in dorsalis pedis. Plantar responses ar e flexor. No clonus. He is able to move extremities with limitations because of the scrotal inflamm atory process. LABORATORY DATA: The white cell count 14,000, hemoglobin 15, and platelets 265. Sodium 135, creatin ine 0.76. Liver profile normal. CK 22, albumin 3.4. One out of 2 sets of blood cultures with coagu lase negative Staphylococcus. There is a pelvis CT scan done which showed no acute abnormalities. ASSESSMENT: 1. Pulmonary fibrosis, idiopathic. 2. Diabetes mellitus type 2. 3. Coronary artery disease. 4. Intertriginous eruption in the groin and genital area with scrotal abrasions and cellulitis. PLAN: We will ask the nurse to submit the swab cultures of the area. Usual organisms would include e nteric josé miguel, Streptococci and Fatuma. Discontinue vancomycin, switch him to cefepime plus Diflucan .
[2017-05-21] MEDS: Aspirin 81 mg Enteric Coated Tablet PO SCH (21:13)
[2017-05-21] MEDS ORDERED: Cefepime 1 GM in Sodium Chloride 0.9% 100 ML IVPB SCH (22:00)
--- NOTE | 2017-05-21 23:32 | CON ---
DATE OF CONSULTATION: 05/21/2017 HISTORY OF PRESENT ILLNESS: Cordell Hernandez is an 87-year-old male who is followed by Dr. Ceja and he has been seen by Dr. Pope in the past. It is felt that he has interstitial lung disease, possibly idiopathic pulmonary fibrosis. He also has medically managed coronary artery disease. He presented this admission with 4 days of progressive discomfort in his scrotum. He says this area is always wet and he implies that this is the reason he is here. He denies shortness of breath and says he is near his baseline. He has had a cough with a lot of sputum for the last 2 days but has not been more short of breath. PAST MEDICAL HISTORY: Remarkable for diabetes, BPH, coronary artery disease, medically managed, hemorrhoidectomy, pacemaker placement, cardiac catheterization, knee surgery, and a history of a sarcoma. SOCIAL HISTORY: He is a nonsmoker, nondrinker. He is a retired builder. FAMILY HISTORY: Noncontributory He has no drug history. ALLERGIES: He has PENICILLIN allergy. REVIEW OF SYSTEMS: Negative for hemoptysis, pleurisy, chest pain, orthopnea, paroxysmal nocturnal dyspnea. The remainder of his 12-point review of systems is negative. PHYSICAL EXAMINATION: GENERAL: He is in no distress. He was joking constantly while I was evaluating. VITAL SIGNS: He is afebrile, heart rate is in the 80s, respiratory rate is in the 20s, oximetry is 94 on 3 liters, blood pressure 120/67. HEENT: Pupils equal. Sclerae are anicteric. Extraocular movements are full. NECK: Supple, no lymphadenopathy. LUNGS: Remarkable for crackles. They are dry at both lung bases. HEART: Regular rhythm, no S3. ABDOMEN: Soft. EXTREMITIES: Without asymmetry. LABORATORY DATA: White count is 14.2, hemoglobin 15.7, platelets 265. Sodium 135, potassium 4.1, chloride 97, bicarbonate 29, BUN 11, creatinine 0.76. IMPRESSION: 1. Pulmonary fibrosis is probably stable. 2. Bronchitis. I reviewed his chest radiograph, I see no alveolar infiltrates. 3. Diabetes. 4. Medically managed coronary artery disease. 5. Scrotal cellulitis. We will continue antimicrobial therapy. There is no clinical indication that he has necrotizing fasciitis at this time. Hopefully, he will gradually improve. Dr. Brading will be notified of this admission in the morning. This is a 50-minute consult, greater than 50% of the time was in the unit coordinating care and reviewing with Mr. Hernandez and his and reviewing records and radiographs. EUFEMIA
[2017-05-22] MEDS: Cefepime 1 GM, Admixture Fee 1 EACH in Sterile Water 10 ML SLOW IVP SCH ×3 (01:12→16:28)
[2017-05-22] MEDS: traZODone HCl 50 MG TAB PO PRN (01:12)
[2017-05-22] MEDS: Sodium Chloride 0.9% 1,000 ML IV SCH (01:19)
[2017-05-22 05:07] LABS: #Basophils 0.1 thou/uL (0.0-0.2); #Eosinphils 0.3 thou/uL (0.0-0.7); #Lymphocytes 2.4 thou/uL (1.20-3.40); #Neutrophils 13.2 thou/uL (1.40-6.50); %Basophils 0.4 % (0.0-1.0); %Eosinophils 1.7 % (0.0-10.0); %Lymphocytes 13.6 % (21.0-51.0); %Neutrophils 73.3 % (42.0-75.0); Hemoglobin 14.5 g/dL (14.0-18.0); Mean Corpuscular HGB CONC 34.7 g/dL (32.0-36.0); Mean Corpuscular Hemoglobin 34.9 pg (27.0-31.0); Mean Platelet Volume 6.5 fL (7.4-10.4); Platelet Count 256 thou/uL (130-400); RBC Distribution Width 12.2 % (11.5-14.5); Red Blood Cell (RBC) Count 4.17 mill/uL (4.70-6.10)
[2017-05-22 05:31] LABS: Anion Gap 15 mmol/L (10-20); BUN (Urea Nitrogen) 7 mg/dL (8.4-25.7); Calc. Creatinine Clearance 104 mL/min (70-130); Calcium 9.3 mg/dL (7.8-10.44); Carbon Dioxide 24 mmol/L (23-31); Chloride 100 mmol/L (98-107); Estimated GFR-MDRD Greater than 90; Glucose 133 mg/dL (83-110); Potassium 3.7 mmol/L (3.5-5.1); Sodium 135 mmol/L (136-145)
[2017-05-22] MEDS ORDERED: Mometasone/Formoterol 120 PUFF INHALER INH SCH (07:00)
[2017-05-22] MEDS: Enoxaparin Sodium 40 MG/0.4 ML SYRINGE SC SCH (07:50)
[2017-05-22] MEDS: Aspirin 81 mg Enteric Coated Tablet PO SCH ×2 (07:51→20:55)
[2017-05-22] MEDS: Furosemide 20 MG TAB PO SCH (07:51)
[2017-05-22] MEDS: Fluconazole 100 MG TAB PO SCH (07:51)
[2017-05-22] MEDS ORDERED: predniSONE 20 MG TAB PO SCH (09:00)
[2017-05-22] MEDS ORDERED: Furosemide 40 MG/4 ML VIAL SLOW IVP SCH (10:15)
--- NOTE | 2017-05-22 10:22 | PRG ---
DATE OF SERVICE: 05/22/2017 SERVICE: Pulmonary Medicine INTERVAL HISTORY: The patient is doing poorly from a respiratory standpoint. He indicates he is feeling a little better. He is tolerating p.o. for the most part. He is a little upset because he had a bowel movement in bed and had to get cleaned up. It required him to clean his backside, which is quite tender right now. PHYSICAL EXAMINATION: VITAL SIGNS: Afebrile, pulse 97, blood pressure 145/77, respirations 18, saturation 93% on 2-1/2 liters nasal cannula. GENERAL: The patient is awake, alert, no apparent distress. LUNGS: Decent air entry. Crackles are present throughout bilateral lung mohr. No prolonged expiratory phase is appreciated. HEART: Normal rate, regular. ABDOMEN: Soft, nontender, nondistended. Bowel sounds are positive. MUSCULOSKELETAL: No cyanosis or clubbing. There is trace pitting in the bilateral lower extremities. NEUROLOGIC: Grossly nonfocal. LABORATORY DATA: WBC 18.0, hemoglobin 14.5, platelets 256,000. PH 7.40, pCO2 50, pO2 108. Basic metabolic profile was essentially unremarkable. Lactate was negative. Blood cultures are growing coag negative Staph in 1 out of 2. ASSESSMENT: 1. Acute on chronic hypoxic respiratory failure. 2. Chronic hypercapnic respiratory failure. 3. Idiopathic pulmonary fibrosis with acute exacerbation. 4. Acute on chronic diastolic heart failure. 5. Acute bronchitis, suspected. 6. Cellulitis of the scrotum. PLAN: I will increase his steroids to 40 mg IV twice daily. Respiratory virus panel will be performed. I will interrupt his IV fluids and will give him a dose of Lasix today. Once his oxygen requirements decrease, we will start to mobilize him a touch more Pulmonary Critical Care will continue to follow during this hospital stay. EUFEMIA
[2017-05-22 10:36] LABS: Vancomycin, Trough 4.1 ug/mL
[2017-05-22 13:03] LABS: CO2 Tension 41.2 mmHg (35.0-45.0); pH, Arterial 7.41 (7.35-7.45)
[2017-05-22 13:04] LABS: Actual Bicarbonate (HCO3a) 25.8 mEq/L (22-26); Base Excess (BEa) 1.1 mEq/L (0 (+/-) 2.5); Calcium, Ionized 1.2 mmol/L (1.12-1.30); Hemoglobin (Hb) 13.6 g/dL (14.0-18.0); O2 Tension (PaO2) 47.2 mmHg (80.0-100.0)
[2017-05-22 13:05] LABS: Puncture Site RRA
--- NOTE | 2017-05-22 13:44 | PDOC.PN ---
- Subjective Encounter Start Date: 05/22/17 Encounter Start Time: 13:42 Pt seen for followup re: acute respiratory failure. Had an episode of confusion , went to next room naked. Also had hypoxia with saO2 in 70s, started on nonrebreather mask, not weaned down to 3LPM by NC. - Objective Resuscitation Status: Resuscitation Status FULL:Full Resuscitation MAR Reviewed: Yes Vital Signs & Weight: Vital Signs (12 hours) Temp Pulse Resp BP Pulse Ox 05/22/17 13:11 95 16 05/22/17 12:33 97.3 F L 80 32 H 75 L 05/22/17 08:00 99.0 F 101 H 24 H 145/77 H 93 L 05/22/17 07:27 97 18 05/22/17 05:22 91 26 H 153/68 H 90 L 05/22/17 04:15 94 L I&O: 05/21/17 05/22/17 05/23/17 06:59 06:59 06:59 Intake Total 1800 480 Balance 1800 480 Result Diagrams: 05/24/17 04:11 05/24/17 04:11 Additional Labs: Accuchecks 05/22/17 05/22/17 05/21/17 11:18 05:44 20:24 POC Glucose 169 H 125 H 133 H 05/21/17 16:24 POC Glucose 139 H Phys Exam - Physical Examination Constitutional: NAD HEENT: PERRLA, moist MMs, sclera anicteric, oral pharynx no lesions Neck: no nodes, no JVD, supple, full ROM Respiratory: no wheezing, no rales, no rhonchi, clear to auscultation bilateral Cardiovascular: RRR, no rub Gastrointestinal: soft, non-tender, positive bowel sounds Neurological: moves all 4 limbs Deviation from normal: Oriented to person and place, not to time. Deviation from normal: Scrotal cellulitis Dx/Plan (1) Acute and chronic respiratory failure with hypoxia Code(s): J96.21 - ACUTE AND CHRONIC RESPIRATORY FAILURE WITH HYPOXIA Status: Acute (2) CAD (coronary artery disease) Code(s): I25.10 - ATHSCL HEART DISEASE OF [place] CORONARY ARTERY W/O ANG PCTRS Status: Chronic Qualifiers: Coronary Disease-Associated Artery/Lesion type: [place] artery [place] vs. transplanted heart: [place] heart Associated angina: without angina Qualified Code(s): I25.10 - Atherosclerotic heart disease of [place] coronary artery without angina pectoris (3) Chronic diastolic (congestive) heart failure Code(s): I50.32 - CHRONIC DIASTOLIC (CONGESTIVE) HEART FAILURE Status: Chronic (4) DM type 2 (diabetes mellitus, type 2) Status: Chronic Qualifiers: Diabetes mellitus complication status: with unspecified complications Diabetes mellitus mcfp insulin use: without watermaster use Qualified Code( s): E11.8 - Type 2 diabetes mellitus with unspecified complications (5) Dyslipidemia Code(s): E78.5 - HYPERLIPIDEMIA, UNSPECIFIED Status: Chronic (6) HTN (hypertension) Code(s): I10 - ESSENTIAL (PRIMARY) HYPERTENSION Status: Chronic Qualifiers: Hypertension type: essential hypertension Qualified Code(s): I10 - Essential (primary) hypertension (7) Interstitial lung disease Code(s): J84.9 - INTERSTITIAL PULMONARY DISEASE, UNSPECIFIED Status: Chronic (8) Cellulitis of scrotum Code(s): N49.2 - INFLAMMATORY DISORDERS OF SCROTUM Status: Acute - Plan plan discussed w/ family, continue antibiotics, out of bed/ambulate * . Pt's oxygenation improved. Check CXR and ABGs Continue accuchecks, insulin sliding scale. Monitor vital signs, titrate antihypertensives as needed. ? confusion secondary to hypoxia. Review of Systems - Review of Systems Constitutional: negative: fever, chills, sweats, weakness, malaise Respiratory: SOB with Excertion. negative: Cough, Dry, Shortness of Breath, Hemoptysis, Pleuritic Pain, Sputum, Wheezing Cardiovascular: negative: chest pain, palpitations, orthopnea, paroxysmal nocturnal dyspnea, edema, light headedness Gastrointestinal: negative: Nausea, Vomiting, Abdominal Pain, Diarrhea, Constipation, Melena, Hematochezia Skin: negative: Rash, Lesions, Vishal, Bruising Neurological: Confusion. negative: Weakness, Numbness, Incoordination, Change in Speech, Seizures - Medications/Allergies Allergies/Adverse Reactions: Allergies Allergy/AdvReac Type Severity Reaction Status Date / Time penicillin G Allergy Verified 02/11/17 21:34 Penicillins Allergy Verified 01/05/17 20:12 Medications: Current Medications Acetaminophen (Tylenol) 650 mg PO Q4H PRN PRN Reason: Headache/Fever or Pain Acetaminophen (Tylenol) 650 mg [place] Q4H PRN PRN Reason: Headache/Fever or Pain Albuterol/Ipratropium (Duoneb) 3 ml NEB [id number] PRN PRN Reason: SOB &/or Wheezing Albuterol/Ipratropium (Duoneb) 3 ml NEB [id number] [facility] Last Admin: 05/22/17 13:11 Dose: 3 ml Aspirin (Ecotrin) 81 mg PO BID [facility] Last Admin: 05/22/17 07:51 Dose: 81 mg Bisacodyl (Dulcolax) 10 mg PO DAILYPRN PRN PRN Reason: Constipation Dextrose/Water (Dextrose 50%) 25 gm SLOW IVP PRN PRN PRN Reason: Hypoglycemia Enoxaparin Sodium (Lovenox) 40 mg SC 0900 [facility] Last Admin: 05/22/17 07:50 Dose: 40 mg Fluconazole (Diflucan) 100 mg PO DAILY [facility] Last Admin: 05/22/17 07:51 Dose: 100 mg Furosemide (Lasix) 20 mg PO DAILY [facility] Last Admin: 05/22/17 07:51 Dose: 20 mg Glucagon (Glucagon) 1 mg IM PRN PRN PRN Reason: Hypoglycemia Dextrose/Water (D5w) 1,000 mls @ 0 mls/hr IV .Q0M PRN; As Directed PRN Reason: Hypoglycemia Cefepime HCl 1 gm/Miscellaneous Medication 1 each/ Sterile Water 10 mls @ 120 mls/hr SLOW IVP 0100,0900,1700 [facility] Last Admin: 05/22/17 12:17 Dose: Not Given Insulin Human Lispro (Humalog) 0 units SC .MILD SLIDING SCALE PRN PRN Reason: Mild Correctional Scale Methylprednisolone Sodium Succinate (Solu-Medrol) 40 mg IVP 1100,2300 [facility] Last Admin: 05/22/17 12:15 Dose: 40 mg Ondansetron HCl (Zofran) 4 mg IVP Q6H PRN PRN Reason: Nausea/Vomiting Pantoprazole Sodium (Protonix) 40 mg PO DAILY [facility] Last Admin: 05/22/17 07:51 Dose: 40 mg Sodium Chloride (Flush - Normal Saline) 10 ml IVF Q12HR [facility] Last Admin: 05/22/17 07:56 Dose: Not Given Sodium Chloride (Flush - Normal Saline) 10 ml IVF PRN PRN PRN Reason: Saline Flush Trazodone HCl (Desyrel) 50 mg PO HSPRN PRN PRN Reason: Insomnia Last Admin: 05/22/17 01:12 Dose: 50 mg
--- NOTE | 2017-05-22 14:00 | RAD ---
SINGLE VIEW OF THE CHEST: Comparison: 05-20-17 History: Respiratory failure. FINDINGS: Single view of the chest shows an enlarged but stable cardiomediastinal silhouette. The pacemaker is unchanged in position. Increased interstitial markings are present. There appear to be superimposed m ultifocal infiltrates. IMPRESSION: Stable exam. POS: [facility]
[2017-05-22] MEDS ORDERED: Boudreaux's Butt Paste 16% Oin 30 GM TUBE TOP PRN (17:09)
--- NOTE | 2017-05-22 17:29 | PRG ---
DATE OF SERVICE: 05/22/2017 SUBJECTIVE: Having some diarrhea. Scrotal pain has improved. OBJECTIVE: VITAL SIGNS: Normal except for O2 saturations, which have dropped. Episodes of disorientation. Rig ht now, he seems to make sense. HEENT: Ocular movements are conjugate. LUNGS: Symmetric air entry with basilar crackles. HEART: S1, S2. Regular rate. ABDOMEN: Soft. GENITOURINARY: Scrotal erythema has improved markedly. The scrotum is soft and there is no evidence of orchiepididymitis or abscess. White cell count is 18,000, hemoglobin 14, platelets 256, creatinine 0.68. He is on methylprednisolo ne and is probably responsible for the increase in the white cell count. ASSESSMENT: 1. Pulmonary fibrosis, idiopathic. 2. Type 2 diabetes. 3. Coronary disease. 4. Intertriginous eruption. DISCUSSION: At this point, I will go ahead and discontinue his cefepime. Continue Diflucan alone. Add some topical antiseptic to the scrotal area something similar to Desitin.
[2017-05-23] MEDS: Cefepime 1 GM, Admixture Fee 1 EACH in Sterile Water 10 ML SLOW IVP SCH ×2 (01:50→09:18)
[2017-05-23] MEDS: traZODone HCl 50 MG TAB PO PRN (01:56)
[2017-05-23 04:42] LABS: #Eosinphils 0.1 thou/uL (0.0-0.7); #Lymphocytes 0.9 thou/uL (1.20-3.40); #Neutrophils 17.4 thou/uL (1.40-6.50); %Eosinophils 0.4 % (0.0-10.0); %Lymphocytes 4.8 % (21.0-51.0); %Neutrophils 89.8 % (42.0-75.0); Hemoglobin 13.8 g/dL (14.0-18.0); Mean Corpuscular HGB CONC 32.5 g/dL (32.0-36.0); Mean Corpuscular Hemoglobin 32.5 pg (27.0-31.0); Mean Corpuscular Volume 99.9 fl (80.0-94.0); Mean Platelet Volume 6.5 fL (7.4-10.4); Platelet Count 275 thou/uL (130-400); RBC Distribution Width 12.3 % (11.5-14.5); Red Blood Cell (RBC) Count 4.24 mill/uL (4.70-6.10); White Blood Cell (WBC) Count 19.4 thou/uL (4.8-10.8)
[2017-05-23 05:02] LABS: Anion Gap 13 mmol/L (10-20); BUN (Urea Nitrogen) 9 mg/dL (8.4-25.7); Calc. Creatinine Clearance 104 mL/min (70-130); Carbon Dioxide 27 mmol/L (23-31); Chloride 98 mmol/L (98-107); Estimated GFR-MDRD Greater than 90; Glucose 151 mg/dL (83-110); Potassium 3.7 mmol/L (3.5-5.1); Sodium 134 mmol/L (136-145)
[2017-05-23] MEDS: Fluconazole 100 MG TAB PO SCH (09:16)
[2017-05-23] MEDS: Enoxaparin Sodium 40 MG/0.4 ML SYRINGE SC SCH (09:16)
[2017-05-23] MEDS: Aspirin 81 mg Enteric Coated Tablet PO SCH ×2 (09:16→20:30)
[2017-05-23] MEDS: Furosemide 20 MG TAB PO SCH (09:16)
--- NOTE | 2017-05-23 11:04 | PRG ---
DATE OF SERVICE: 05/23/2017 SERVICE: Pulmonary Medicine. INTERVAL HISTORY: The patient is doing poorly from a respiratory standpoint. I find him a little bit confused this morning. His oxygen saturations will frequently dipped down into the 70s. Whenever he tries to get some water and he will slowly recover over a period of 2-5 minutes after he calms down and starts breathing through the mask. During one of these episodes, he went particularly low. BiPAP was considered, but ultimately he recovered once again. He is now in the ICU and being watched very closely. He cannot provide me with any additional elements of the history at this point. Otherwise no events overnight. OBJECTIVE: VITAL SIGNS: Afebrile, pulse 100, blood pressure 138/65, respirations 33, saturation 94% on 50% FiO2. GENERAL: The patient is awake and alert. He is in no apparent distress. LUNGS: Decent air entry. There are crackles present. No prolonged expiratory phase. I do not appreciate rhonchi or wheezing. HEART: Normal rate, regular. ABDOMEN: Soft, nontender, nondistended. Bowel sounds are positive. MUSCULOSKELETAL: No cyanosis or clubbing. No pitting in the bilateral lower extremities. NEUROLOGIC: Grossly nonfocal. LABORATORY DATA: WBC 19.4, hemoglobin 13.8, platelets 275,000. A pH 7.41, pCO2 41, pO2 47 on 3 liters nasal cannula, corresponding to saturation 84% at that time. Basic metabolic profile is completely unremarkable with potassium of 3.7. Calcium is normal. One out of 2 blood cultures is growing coag negative staph. Respiratory virus PCR was completely unremarkable. IMAGING: Chest x-ray demonstrates no interval change. There are extensive bilateral interstitial changes. No focal consolidating lesion is identified. ASSESSMENT: 1. Acute on chronic hypoxic respiratory failure. 2. Idiopathic pulmonary fibrosis with acute exacerbation. 3. Acute on chronic diastolic heart failure. 4. Acute bronchitis. 5. Cellulitis of the scrotum. PLAN: We will continue his steroids, nebulized medications, and antibiotics. He will remain in the ICU. We will entertain the possibility of putting him on and off BiPAP. Hopefully, we can avoid intubating him because if this occurs, he would be very unlikely to be extubated. Palliative Care consultation will be initiated. The patient is a little bit confused today and not able to clearly understand the ramifications of his choices. Pulmonary Critical Care will continue to follow in this location. EUFEMIA
[2017-05-23 14:26] LABS: Actual Bicarbonate (HCO3a) 28.1 mEq/L (22-26); Base Excess (BEa) 3.6 mEq/L (0 (+/-) 2.5); CO2 Tension 42.3 mmHg (35.0-45.0); O2 Tension (PaO2) 60.4 mmHg (80.0-100.0); pH, Arterial 7.44 (7.35-7.45)
[2017-05-23 14:27] LABS: Calcium, Ionized 1.2 mmol/L (1.12-1.30); Hematocrit-ABG 44.7 % (42.0-52.0); Hemoglobin (Hb) 13.7 g/dL (14.0-18.0); Puncture Site RRA
[2017-05-23 14:28] LABS: ALV-art Gradient 171.925 (0-20)
--- NOTE | 2017-05-23 14:48 | PDOC.PN ---
- Subjective Encounter Start Date: 05/23/17 Encounter Start Time: 09:40 Pt seen for followup re: acute hypoxic respiratory failure. On Ventimask, denies any complaints. - Objective Resuscitation Status: Resuscitation Status FULL:Full Resuscitation MAR Reviewed: Yes Vital Signs & Weight: Vital Signs (12 hours) Temp Pulse Resp Pulse Ox 05/23/17 14:21 104 H 38 H 92 L 05/23/17 12:00 98.6 F 05/23/17 08:00 98.3 F 105 H 43 H 94 L 05/23/17 07:27 95 05/23/17 07:25 99 32 H 95 05/23/17 05:00 97.9 F Weight Weight 205 lb 0.478 oz Most Recent Monitor Data Heart Rate from ECG 111 NIBP 127/91 NIBP BP-Mean 98 Respiration from ECG 40 SpO2 90 I&O: 05/22/17 05/23/17 05/24/17 06:59 06:59 06:59 Intake Total 1800 970 250 Output Total 450 1000 Balance 1800 520 -750 Result Diagrams: 05/23/17 04:03 05/23/17 04:03 Additional Labs: Accuchecks 05/23/17 05/23/17 05/22/17 11:06 05:48 21:15 POC Glucose 131 H 139 H 150 H 05/22/17 16:44 POC Glucose 193 H EKG Reviewed by me: Yes (Tele: NSR) Phys Exam - Physical Examination Constitutional: NAD HEENT: moist MMs Neck: supple Respiratory: clear to auscultation bilateral Cardiovascular: RRR Gastrointestinal: soft Neurological: moves all 4 limbs Psychiatric: normal affect Deviation from normal: scrotal cellulitis Dx/Plan (1) Acute and chronic respiratory failure with hypoxia Code(s): J96.21 - ACUTE AND CHRONIC RESPIRATORY FAILURE WITH HYPOXIA Status: Acute (2) Cellulitis of scrotum Code(s): N49.2 - INFLAMMATORY DISORDERS OF SCROTUM Status: Acute (3) CAD (coronary artery disease) Code(s): I25.10 - ATHSCL HEART DISEASE OF [place] CORONARY ARTERY W/O ANG PCTRS Status: Chronic Qualifiers: Coronary Disease-Associated Artery/Lesion type: [place] artery [place] vs. transplanted heart: [place] heart Associated angina: without angina Qualified Code(s): I25.10 - Atherosclerotic heart disease of [place] coronary artery without angina pectoris (4) Chronic diastolic (congestive) heart failure Code(s): I50.32 - CHRONIC DIASTOLIC (CONGESTIVE) HEART FAILURE Status: Chronic (5) DM type 2 (diabetes mellitus, type 2) Status: Chronic Qualifiers: Diabetes mellitus complication status: with unspecified complications Diabetes mellitus fci insulin use: without fci use Qualified Code( s): E11.8 - Type 2 diabetes mellitus with unspecified complications (6) Dyslipidemia Code(s): E78.5 - HYPERLIPIDEMIA, UNSPECIFIED Status: Chronic (7) HTN (hypertension) Code(s): I10 - ESSENTIAL (PRIMARY) HYPERTENSION Status: Chronic Qualifiers: Hypertension type: essential hypertension Qualified Code(s): I10 - Essential (primary) hypertension (8) Interstitial lung disease Code(s): J84.9 - INTERSTITIAL PULMONARY DISEASE, UNSPECIFIED Status: Chronic - Plan * . Pt was transfered to CCU earlier today due to hypoxia (IMCU overflow) because pt kept taking his mask off. SaO2 improved. Continue fluconazole. Add barrier ointment. Review of Systems - Review of Systems Respiratory: negative: Cough, Dry, Shortness of Breath, Hemoptysis, SOB with Excertion, Pleuritic Pain, Sputum, Wheezing Cardiovascular: negative: chest pain, palpitations, orthopnea, paroxysmal nocturnal dyspnea, edema, light headedness - Medications/Allergies Allergies/Adverse Reactions: Allergies Allergy/AdvReac Type Severity Reaction Status Date / Time penicillin G Allergy Verified 02/11/17 21:34 Penicillins Allergy Verified 01/05/17 20:12 Medications: Current Medications Acetaminophen (Tylenol) 650 mg PO Q4H PRN PRN Reason: Headache/Fever or Pain Acetaminophen (Tylenol) 650 mg [place] Q4H PRN PRN Reason: Headache/Fever or Pain Albuterol/Ipratropium (Duoneb) 3 ml NEB [id number] PRN PRN Reason: SOB &/or Wheezing Albuterol/Ipratropium (Duoneb) 3 ml NEB [id number] [facility] Last Admin: 05/23/17 14:21 Dose: 3 ml Aspirin (Ecotrin) 81 mg PO BID [facility] Last Admin: 05/23/17 09:16 Dose: 81 mg Bisacodyl (Dulcolax) 10 mg PO DAILYPRN PRN PRN Reason: Constipation Dextrose/Water (Dextrose 50%) 25 gm SLOW IVP PRN PRN PRN Reason: Hypoglycemia Enoxaparin Sodium (Lovenox) 40 mg SC 0900 [facility] Last Admin: 05/23/17 09:16 Dose: 40 mg Fluconazole (Diflucan) 100 mg PO DAILY [facility] Last Admin: 05/23/17 09:16 Dose: 100 mg Furosemide (Lasix) 20 mg PO DAILY [facility] Last Admin: 05/23/17 09:16 Dose: 20 mg Glucagon (Glucagon) 1 mg IM PRN PRN PRN Reason: Hypoglycemia Dextrose/Water (D5w) 1,000 mls @ 0 mls/hr IV .Q0M PRN; As Directed PRN Reason: Hypoglycemia Cefepime HCl 1 gm/Miscellaneous Medication 1 each/ Sterile Water 10 mls @ 120 mls/hr SLOW IVP 0100,0900,1700 [facility] Last Admin: 05/23/17 09:18 Dose: 10 mls Insulin Human Lispro (Humalog) 0 units SC .MILD SLIDING SCALE PRN PRN Reason: Mild Correctional Scale Last Admin: 05/22/17 21:26 Dose: 2 unit Methylprednisolone Sodium Succinate (Solu-Medrol) 40 mg IVP 1100,2300 [facility] Last Admin: 05/23/17 11:07 Dose: 40 mg Ondansetron HCl (Zofran) 4 mg IVP Q6H PRN PRN Reason: Nausea/Vomiting Pantoprazole Sodium (Protonix) 40 mg PO DAILY [facility] Last Admin: 05/23/17 09:16 Dose: 40 mg Sodium Chloride (Flush - Normal Saline) 10 ml IVF Q12HR [facility] Last Admin: 05/23/17 09:16 Dose: 10 ml Sodium Chloride (Flush - Normal Saline) 10 ml IVF PRN PRN PRN Reason: Saline Flush Last Admin: 05/23/17 11:07 Dose: 10 ml Trazodone HCl (Desyrel) 50 mg PO HSPRN PRN PRN Reason: Insomnia Last Admin: 05/23/17 01:56 Dose: 50 mg Zinc Oxide (Sav's Butt Paste 16% Oin) 0 gm TOP PRN PRN PRN Reason: . Last Admin: 05/22/17 17:38 Dose: 1 applic
[2017-05-23 14:59] VITALS: BMI 27.0
[2017-05-23] MEDS: Acetaminophen 325 MG TAB PO PRN ×2 (15:21→19:14)
[2017-05-23] MEDS ORDERED: Haloperidol Lactate 5 MG/ML VIAL IM SCH (15:45)
[2017-05-23] MEDS: Lorazepam 2 MG/ML VIAL SLOW IVP PRN (21:56)
[2017-05-24] MEDS: Lorazepam 2 MG/ML VIAL SLOW IVP PRN ×5 (04:51→21:59)
[2017-05-24 05:15] LABS: Anion Gap 13 mmol/L (10-20); BUN (Urea Nitrogen) 17 mg/dL (8.4-25.7); Calc. Creatinine Clearance 106 mL/min (70-130); Calcium 9.1 mg/dL (7.8-10.44); Carbon Dioxide 29 mmol/L (23-31); Chloride 96 mmol/L (98-107); Estimated GFR-MDRD Greater than 90; Glucose 154 mg/dL (83-110); Potassium 3.6 mmol/L (3.5-5.1); Sodium 134 mmol/L (136-145)
[2017-05-24 05:21] LABS: Band 3 % (5-11); Hemoglobin 13.3 g/dL (14.0-18.0); Lymphocytes 8 % (21-51); MDiff Complete? YES; Mean Corpuscular HGB CONC 33.7 g/dL (32.0-36.0); Mean Corpuscular Hemoglobin 33.7 pg (27.0-31.0); Mean Platelet Volume 6.7 fL (7.4-10.4); Monocytes 5 % (0-10); Neutrophil 84 % (42-75); Platelet Count 260 thou/uL (130-400); RBC Distribution Width 12.2 % (11.5-14.5); Red Blood Cell (RBC) Count 3.96 mill/uL (4.70-6.10); White Blood Cell (WBC) Count 20.5 thou/uL (4.8-10.8)
[2017-05-24] MEDS: Enoxaparin Sodium 40 MG/0.4 ML SYRINGE SC SCH (09:21)
--- NOTE | 2017-05-24 12:08 | EKG ---
Test Reason : Blood Pressure : / mmHG Vent. Rate : 096 BPM Atrial Rate : 096 BPM P-R Int : 174 ms QRS Dur : 138 ms QT Int : 380 ms P-R-T Axes : 023 -43 120 degrees QTc Int : 480 ms Sinus rhythm with occasional AV dual-paced complexes and Premature supraventricular complexes and wit h occasional Premature ventricular complexes Possible Left atrial enlargement Left axis deviation Left ventricular hypertrophy with QRS widening and repolarization abnormality Inferior infarct , age undetermined Anterolateral infarct , age undetermined Abnormal ECG Confirmed by YARA EDWARDS, ANATOLIY ([id number]), food editor TOMMIE FRANKEL ([id number]) on 05/24/2017 12:08:10 PM Referred By: Confirmed By:ANATOLIY LIVINGSTON MD
[2017-05-24] MEDS: Fluconazole 100 MG TAB PO SCH (13:38)
[2017-05-24] MEDS: Aspirin 81 mg Enteric Coated Tablet PO SCH ×2 (13:38→22:01)
[2017-05-24] MEDS: Furosemide 20 MG TAB PO SCH (13:38)
--- NOTE | 2017-05-24 15:06 | PRG ---
DATE OF SERVICE: 05/24/2017 SERVICE: Pulmonary Medicine. INTERVAL HISTORY: The patient is doing fine from a respiratory standpoint. He is currently encephalopathic. He worked up earlier and took some time to settle down. That being said, now he is resting comfortably and respirations are in the 30. He is currently requiring BiPAP. Now we are going to see if he is tolerating some breaks from that. PHYSICAL EXAMINATION: VITAL SIGNS: Afebrile, pulse 92, blood pressure 101/61, respirations 30, saturation 98% on 65% FiO2. GENERAL: Patient is somnolent. He wakes up with gentle stimulation, but drifts off back to sleep. He remains a little confused. HEENT: Normocephalic, atraumatic. Sclerae are white, conjunctivae pink. Oral mucosa is moist without lesions. LUNGS: Decent air entry. There is no prolonged expiratory phase. Crackles are present throughout bilateral lung mohr. HEART: Normal rate, regular. ABDOMEN: Soft, nontender, nondistended. Bowel sounds positive. MUSCULOSKELETAL: No cyanosis or clubbing. No pitting in the bilateral lower extremities. NEUROLOGIC: Grossly nonfocal. LABORATORY DATA: WBC 20.5, hemoglobin 13.3, platelets 260,000. Basic metabolic profile is otherwise unremarkable. Potassium 3.6. Vancomycin trough is 4.1. Respiratory virus panel was unremarkable. One out of two blood cultures is growing coag-negative staph. ASSESSMENT: 1. Acute on chronic hypoxic respiratory failure. 2. Idiopathic pulmonary fibrosis with acute exacerbation. 3. Acute on chronic diastolic heart failure. 4. Acute bronchitis. 5. Cellulitis of the scrotum. PLAN: We will transition the patient over comfort care only. Based on palliative care discussions, the patient's family has requested that they transition home under the care of hospice. They would like this to occur on Friday. In the meantime, supportive measures will be continued, but his code status has been changed to reflect the patient's wishes by making him a DNI/ DNR. Pulmonary Critical Care will continue to follow while he remains in this location. EUFEMIA
--- NOTE | 2017-05-24 16:49 | PDOC.PN ---
- Subjective Encounter Start Date: 05/24/17 Encounter Start Time: 09:20 Pt seen for followup re: acute on chronic respiratory failure. Pt sleepy, unable to complete ROS. - Objective Resuscitation Status: Resuscitation Status DNR:Do Not Resuscitate MAR Reviewed: Yes Vital Signs & Weight: Vital Signs (12 hours) Temp Pulse Resp BP Pulse Ox 05/24/17 15:52 101 H 52 H 89 L 05/24/17 15:49 99 05/24/17 15:00 97.9 F 93 34 H 122/91 H 94 L 05/24/17 11:00 97.8 F 92 30 H 101/61 98 05/24/17 08:00 97.2 F L 90 32 H 100 05/24/17 07:48 90 100 05/24/17 07:43 96 32 H 99 05/24/17 07:00 97.2 F L 90 32 H 99/56 L 100 Weight Admit Weight 204 lb Weight 206 lb 6.4 oz Most Recent Monitor Data Heart Rate from ECG 111 NIBP 127/91 NIBP BP-Mean 98 Respiration from ECG 40 SpO2 90 I&O: 05/23/17 05/24/17 05/25/17 06:59 06:59 06:59 Intake Total 970 730 Output Total 450 1450 Balance 520 -720 Result Diagrams: 05/24/17 04:11 05/24/17 04:11 Additional Labs: Accuchecks 05/24/17 05/24/17 05/23/17 16:19 10:22 20:30 POC Glucose 116 H 124 H 155 H EKG Reviewed by me: Yes (Tele: NSR) Phys Exam - Physical Examination Constitutional: NAD HEENT: moist MMs Neck: supple Respiratory: clear to auscultation bilateral Cardiovascular: RRR Gastrointestinal: soft Neurological: moves all 4 limbs Dx/Plan (1) Acute and chronic respiratory failure with hypoxia Code(s): J96.21 - ACUTE AND CHRONIC RESPIRATORY FAILURE WITH HYPOXIA Status: Acute (2) Cellulitis of scrotum Code(s): N49.2 - INFLAMMATORY DISORDERS OF SCROTUM Status: Acute (3) CAD (coronary artery disease) Code(s): I25.10 - ATHSCL HEART DISEASE OF [place] CORONARY ARTERY W/O ANG PCTRS Status: Chronic Qualifiers: Coronary Disease-Associated Artery/Lesion type: [place] artery [place] vs. transplanted heart: [place] heart Associated angina: without angina Qualified Code(s): I25.10 - Atherosclerotic heart disease of [place] coronary artery without angina pectoris (4) Chronic diastolic (congestive) heart failure Code(s): I50.32 - CHRONIC DIASTOLIC (CONGESTIVE) HEART FAILURE Status: Chronic (5) DM type 2 (diabetes mellitus, type 2) Status: Chronic Qualifiers: Diabetes mellitus complication status: with unspecified complications Diabetes mellitus director long term care insulin use: without director long term care use Qualified Code( s): E11.8 - Type 2 diabetes mellitus with unspecified complications (6) Dyslipidemia Code(s): E78.5 - HYPERLIPIDEMIA, UNSPECIFIED Status: Chronic (7) HTN (hypertension) Code(s): I10 - ESSENTIAL (PRIMARY) HYPERTENSION Status: Chronic Qualifiers: Hypertension type: essential hypertension Qualified Code(s): I10 - Essential (primary) hypertension (8) Interstitial lung disease Code(s): J84.9 - INTERSTITIAL PULMONARY DISEASE, UNSPECIFIED Status: Chronic - Plan * . Plan for comfort measures. For hospice at home on Friday. Review of Systems - Medications/Allergies Allergies/Adverse Reactions: Allergies Allergy/AdvReac Type Severity Reaction Status Date / Time penicillin G Allergy Verified 02/11/17 21:34 Penicillins Allergy Verified 01/05/17 20:12 Medications: Current Medications Acetaminophen (Tylenol) 650 mg PO Q4H PRN PRN Reason: Headache/Fever or Pain Last Admin: 05/23/17 19:14 Dose: 650 mg Acetaminophen (Tylenol) 650 mg NM Q4H PRN PRN Reason: Headache/Fever or Pain Albuterol/Ipratropium (Duoneb) 3 ml NEB [id number] PRN PRN Reason: SOB &/or Wheezing Albuterol/Ipratropium (Duoneb) 3 ml NEB [id number] [facility] Last Admin: 05/24/17 15:52 Dose: 3 ml Aspirin (Ecotrin) 81 mg PO BID [facility] Last Admin: 05/24/17 13:38 Dose: Not Given Bisacodyl (Dulcolax) 10 mg PO DAILYPRN PRN PRN Reason: Constipation Dextrose/Water (Dextrose 50%) 25 gm SLOW IVP PRN PRN PRN Reason: Hypoglycemia Enoxaparin Sodium (Lovenox) 40 mg SC 0900 [facility] Last Admin: 05/24/17 09:21 Dose: 40 mg Fluconazole (Diflucan) 100 mg PO DAILY [facility] Last Admin: 05/24/17 13:38 Dose: Not Given Furosemide (Lasix) 20 mg PO DAILY [facility] Last Admin: 05/24/17 13:38 Dose: Not Given Glucagon (Glucagon) 1 mg IM PRN PRN PRN Reason: Hypoglycemia Dextrose/Water (D5w) 1,000 mls @ 0 mls/hr IV .Q0M PRN; As Directed PRN Reason: Hypoglycemia Insulin Human Lispro (Humalog) 0 units SC .MILD SLIDING SCALE PRN PRN Reason: Mild Correctional Scale Last Admin: 05/22/17 21:26 Dose: 2 unit Lorazepam (Ativan) 0.5 mg SLOW IVP Q2H PRN PRN Reason: Anxiety/Agitation Last Admin: 05/24/17 15:51 Dose: 0.5 mg Methylprednisolone Sodium Succinate (Solu-Medrol) 40 mg IVP 1100,2300 [facility] Last Admin: 05/24/17 13:54 Dose: 40 mg Morphine Sulfate (Morphine) 2 mg SLOW IVP Q2H PRN PRN Reason: sob Ondansetron HCl (Zofran) 4 mg IVP Q6H PRN PRN Reason: Nausea/Vomiting Pantoprazole Sodium (Protonix) 40 mg PO DAILY [facility] Last Admin: 05/24/17 13:38 Dose: Not Given Sodium Chloride (Flush - Normal Saline) 10 ml IVF Q12HR [facility] Last Admin: 05/24/17 09:21 Dose: 10 ml Sodium Chloride (Flush - Normal Saline) 10 ml IVF PRN PRN PRN Reason: Saline Flush Last Admin: 05/24/17 15:52 Dose: 10 ml Trazodone HCl (Desyrel) 50 mg PO HSPRN PRN PRN Reason: Insomnia Last Admin: 05/23/17 01:56 Dose: 50 mg Zinc Oxide (Sav's Butt Paste 16% Oin) 0 gm TOP PRN PRN PRN Reason: . Last Admin: 05/22/17 17:38 Dose: 1 applic
[2017-05-25] MEDS: Lorazepam 2 MG/ML VIAL SLOW IVP PRN ×7 (01:02→23:48)
[2017-05-25] MEDS: Enoxaparin Sodium 40 MG/0.4 ML SYRINGE SC SCH (09:11)
[2017-05-25] MEDS: Fluconazole 100 MG TAB PO SCH (09:12)
[2017-05-25] MEDS: Furosemide 20 MG TAB PO SCH (09:12)
[2017-05-25] MEDS: Aspirin 81 mg Enteric Coated Tablet PO SCH ×2 (09:12→21:23)
--- NOTE | 2017-05-25 11:12 | PDOC.PN ---
- Subjective Encounter Start Date: 05/25/17 Encounter Start Time: 10:00 Pt seen for followup re: acute respiratory failure. Nonverbal, occasional agitation. Unable to complete ROS. - Objective Resuscitation Status: Resuscitation Status DNR:Do Not Resuscitate Vital Signs & Weight: Vital Signs (12 hours) Temp Pulse Resp BP BP Pulse Ox 05/25/17 08:07 97 05/25/17 08:05 100 05/25/17 08:04 100 47 H 97 05/25/17 07:31 97.7 F 82 20 98 05/25/17 07:28 97.7 F 82 20 106/68 99 05/25/17 03:49 97.9 F 93 20 117/68 98 05/25/17 00:00 98.5 F 102 H 20 132/87 91 L 05/24/17 23:50 96 30 H 93 L Weight Admit Weight 204 lb Weight 207 lb 3.752 oz Most Recent Monitor Data Heart Rate from ECG 111 NIBP 127/91 NIBP BP-Mean 98 Respiration from ECG 40 SpO2 90 I&O: 05/24/17 05/25/17 05/26/17 06:59 06:59 06:59 Intake Total 730 Output Total 1450 175 Balance -720 -175 Result Diagrams: 05/24/17 04:11 05/24/17 04:11 Additional Labs: Accuchecks 05/25/17 05/25/17 05/24/17 10:48 06:39 19:58 POC Glucose 140 H 178 H 122 H 05/24/17 16:19 POC Glucose 116 H Phys Exam - Physical Examination Occasional agitation Neck: supple Respiratory: clear to auscultation bilateral tachypnea Cardiovascular: RRR Gastrointestinal: soft Neurological: moves all 4 limbs Deviation from normal: Sleepy Dx/Plan (1) Acute and chronic respiratory failure with hypoxia Code(s): J96.21 - ACUTE AND CHRONIC RESPIRATORY FAILURE WITH HYPOXIA Status: Acute (2) Cellulitis of scrotum Code(s): N49.2 - INFLAMMATORY DISORDERS OF [place]OT[place] Status: Acute (3) CAD (coronary artery disease) Code(s): I25.10 - ATHSCL HEART DISEASE OF [place] CORONARY ARTERY W/O ANG PCTRS Status: Chronic Qualifiers: Coronary Disease-Associated Artery/Lesion type: [place] artery [place] vs. transplanted heart: [place] heart Associated angina: without angina Qualified Code(s): I25.10 - Atherosclerotic heart disease of [place] coronary artery without angina pectoris (4) Chronic diastolic (congestive) heart failure Code(s): I50.32 - CHRONIC DIASTOLIC (CONGESTIVE) HEART FAILURE Status: Chronic (5) DM type 2 (diabetes mellitus, type 2) Status: Chronic Qualifiers: Diabetes mellitus complication status: with unspecified complications Diabetes mellitus intermission coordinator insulin use: without intermission coordinator use Qualified Code( s): E11.8 - Type 2 diabetes mellitus with unspecified complications (6) Dyslipidemia Code(s): E78.5 - HYPERLIPIDEMIA, UNSPECIFIED Status: Chronic (7) HTN (hypertension) Code(s): I10 - ESSENTIAL (PRIMARY) HYPERTENSION Status: Chronic Qualifiers: Hypertension type: essential hypertension Qualified Code(s): I10 - Essential (primary) hypertension (8) Interstitial lung disease Code(s): J84.9 - INTERSTITIAL PULMONARY DISEASE, UNSPECIFIED Status: Chronic - Plan * . Likely home for hospice care tomorrow. Review of Systems - Medications/Allergies Allergies/Adverse Reactions: Allergies Allergy/AdvReac Type Severity Reaction Status Date / Time penicillin G Allergy Verified 02/11/17 21:34 Penicillins Allergy Verified 01/05/17 20:12 Medications: Current Medications Acetaminophen (Tylenol) 650 mg PO Q4H PRN PRN Reason: Headache/Fever or Pain Last Admin: 05/23/17 19:14 Dose: 650 mg Acetaminophen (Tylenol) 650 mg IN Q4H PRN PRN Reason: Headache/Fever or Pain Albuterol/Ipratropium (Duoneb) 3 ml NEB [id number] PRN PRN Reason: SOB &/or Wheezing Albuterol/Ipratropium (Duoneb) 3 ml NEB [id number] [facility] Last Admin: 05/25/17 08:04 Dose: 3 ml Aspirin (Ecotrin) 81 mg PO BID [facility] Last Admin: 05/25/17 09:12 Dose: Not Given Bisacodyl (Dulcolax) 10 mg PO DAILYPRN PRN PRN Reason: Constipation Dextrose/Water (Dextrose 50%) 25 gm SLOW IVP PRN PRN PRN Reason: Hypoglycemia Enoxaparin Sodium (Lovenox) 40 mg SC 0900 [facility] Last Admin: 05/25/17 09:11 Dose: 40 mg Fluconazole (Diflucan) 100 mg PO DAILY [facility] Last Admin: 05/25/17 09:12 Dose: Not Given Furosemide (Lasix) 20 mg PO DAILY [facility] Last Admin: 05/25/17 09:12 Dose: Not Given Glucagon (Glucagon) 1 mg IM PRN PRN PRN Reason: Hypoglycemia Dextrose/Water (D5w) 1,000 mls @ 0 mls/hr IV .Q0M PRN; As Directed PRN Reason: Hypoglycemia Insulin Human Lispro (Humalog) 0 units SC .MILD SLIDING SCALE PRN PRN Reason: Mild Correctional Scale Last Admin: 05/22/17 21:26 Dose: 2 unit Lorazepam (Ativan) 1 mg SLOW IVP Q2H PRN PRN Reason: Anxiety/Agitation Methylprednisolone Sodium Succinate (Solu-Medrol) 40 mg IVP 1100,2300 [facility] Last Admin: 05/24/17 23:03 Dose: 40 mg Morphine Sulfate (Morphine) 2 mg SLOW IVP Q2H PRN PRN Reason: sob Last Admin: 05/25/17 02:39 Dose: 2 mg Ondansetron HCl (Zofran) 4 mg IVP Q6H PRN PRN Reason: Nausea/Vomiting Pantoprazole Sodium (Protonix) 40 mg PO DAILY [facility] Last Admin: 05/25/17 09:13 Dose: Not Given Sodium Chloride (Flush - Normal Saline) 10 ml IVF Q12HR [facility] Last Admin: 05/25/17 09:13 Dose: 10 ml Sodium Chloride (Flush - Normal Saline) 10 ml IVF PRN PRN PRN Reason: Saline Flush Last Admin: 05/24/17 19:40 Dose: 10 ml Trazodone HCl (Desyrel) 50 mg PO HSPRN PRN PRN Reason: Insomnia Last Admin: 05/23/17 01:56 Dose: 50 mg Zinc Oxide (Sav's Butt Paste 16% Oin) 0 gm TOP PRN PRN PRN Reason: . Last Admin: 05/22/17 17:38 Dose: 1 applic
--- NOTE | 2017-05-25 14:07 | PRG ---
DATE OF SERVICE: 05/25/2017 SERVICE: Pulmonary Medicine. INTERVAL HISTORY: The patient is doing poorly. His breathing is very rapid and shallow. His satura tions are low. He does not like using the BiPAP and this is a significant source of agitation for hi m. As such, it is going to be discontinued. I suggested that in his current condition, if he does n ot start taking p.o., he will likely pass away within the next couple of days, if not a week or two. The patient's became tearful immediately. She was thinking that he would continue breathing on for a couple of months. That being said, she has expressed that is grateful for the comfort medicat ions that he has received so far. PHYSICAL EXAMINATION: VITAL SIGNS: Afebrile, pulse 78, blood pressure 113/70, respirations 18 and saturation 99% on 40% Fi O2. GENERAL: The patient is somnolent. He wakes up with a little stimulation, but without continuous st imulation, he falls back to sleep in less than 3 seconds. HEENT: Normocephalic and atraumatic. Sclerae are white, conjunctivae pink. Oral mucosa is moist wi thout lesions. LUNGS: There is reduced air entry. Crackles are present. No wheezing or rhonchi are appreciated. HEART: Normal rate and regular. ABDOMEN: Soft, nontender and nondistended. Bowel sounds are positive. MUSCULOSKELETAL: No cyanosis or clubbing. There is no pitting in the bilateral lower extremities. NEUROLOGIC: Grossly nonfocal. ASSESSMENT: 1. Acute on chronic hypoxic respiratory failure. 2. Idiopathic pulmonary fibrosis with acute exacerbation. 3. Chronic diastolic heart failure, currently euvolemic. 4. Acute bronchitis. 5. Cellulitis of the scrotum. DISCUSSION AND PLAN: I will initiate a little bit of free water for the patient over the next 24 margie rs. The patient's family would like for him to get home before he passes away. They are planning on making the transition to home tomorrow morning. We will continue to provide medications if the manda ent requires then for comfort purposes. That being said, the patient's understands that people can pass away abruptly in his current state. I will continue to follow while the patient remains in house, but our plan is for disposition to home in the morning.
[2017-05-26] MEDS: Lorazepam 2 MG/ML VIAL SLOW IVP PRN ×3 (02:32→11:57)
[2017-05-26 08:44] VITALS: BP 134/80; TEMP 98.1
[2017-05-26] MEDS: Enoxaparin Sodium 40 MG/0.4 ML SYRINGE SC SCH (09:21)
[2017-05-26] MEDS: Fluconazole 100 MG TAB PO SCH (09:21)
[2017-05-26] MEDS: Aspirin 81 mg Enteric Coated Tablet PO SCH (09:21)
[2017-05-26] MEDS: Furosemide 20 MG TAB PO SCH (09:21)
--- NOTE | 2017-05-26 11:51 | PRG ---
DATE OF SERVICE: 05/26/2017 SERVICE: Pulmonary Medicine INTERVAL HISTORY: The patient is doing fine from a respiratory standpoint. He is breathing comforta twyla and he had no events overnight based on what the family is telling me. He remains comfortable. They are transitioning home with hospice today. He did not really wake up too much overnight. Some of his pain medicines were off a little bit through the evening time. He started to struggle a littl e bit and got 1 dose medication, he has been comfortable since. PHYSICAL EXAMINATION: VITAL SIGNS: Afebrile, pulse 101, blood pressure 134/80, respirations 36, saturation 95% on 40% Vent imask. HEENT: Normocephalic, atraumatic. Sclerae are white, conjunctivae pink. Oral mucosa is dry. LUNGS: There is good air entry with no prolonged expiratory phase. No wheezing is present. Crackle s are evident. No rhonchi. HEART: Normal rate, regular. ABDOMEN: Soft, nontender, nondistended. Bowel sounds are positive. MUSCULOSKELETAL: No cyanosis or clubbing. No pitting in the bilateral lower extremities. NEUROLOGIC: Grossly nonfocal. ASSESSMENT: 1. Acute on chronic hypoxic respiratory failure. 2. Idiopathic pulmonary fibrosis with acute exacerbation. 3. Chronic diastolic heart failure. 4. Acute bronchitis. 5. Cellulitis of the scrotum. DISCUSSION AND PLAN: As previously planned, the patient will be transitioned home with hospice today . Pulmonary will continue to follow if he remains in a house for any reason. Please call with addit ional questions or concerns moving forward.
--- NOTE | 2017-05-27 00:31 | DIS ---
PRIMARY CARE PHYSICIAN: Blu Tineo M.D. DATE OF ADMISSION: 05/21/2017 DATE OF DISCHARGE: 05/26/2017 CONDITION OF PATIENT ON THE DAY OF DISCHARGE: Stable. I assessed Mr. Hernandez on the day of discharge. He was resting comfortably, did not appear to be in a ny distress. Vital signs are stable. S1 and S2 are heard, regular. Lung examination reveals a few bibasilar crackles. DISCHARGE DIAGNOSES: 1. Acute on chronic hypoxic respiratory failure. 2. Idiopathic pulmonary fibrosis with acute exacerbation. 3. Acute bronchitis. 4. Cellulitis of the scrotum. HOSPITAL COURSE: Mr. Hernandez is a pleasant 87-year-old gentleman who was admitted to [facility] on 05/21/2017 for acute on chronic hypoxic respiratory failure as well as scrotal c ellulitis. He was seen by Pulmonology Service. He received oxygen, bronchodilators, antibiotics and steroids. He continued to decline. Family opted for hospice care for comfort measures. He is being discharged to hospice care [facility] on 05/26/2017. Many times for allowing me to participate in your patient's care. Please feel free to contact me wit h any questions or concerns. DISCHARGE DISPOSITION: Hospice care [facility]. TOTAL AMOUNT OF TIME SPENT COORDINATING THIS DISCHARGE: 18 minutes.
== END 2017-05-26 12:20 | disposition hospice, inpatient (51) | DRG 727 ==
LOC: ERS 15:55 → T4-B 17:38 → CCU 05-23 01:20 → IMCU/EMU 05-23 14:46
PROVIDERS: ADMIT Internal Medicine; ATTEND Internal Medicine
DX: N49.2 Inflammatory disorders of scrotum (principal); J96.21 Acute and chronic respiratory failure with hypoxia; I50.33 Acute on chronic diastolic (congestive) heart failure; J44.0 Chronic obstructive pulmonary disease with (acute) lower respiratory infection; E87.1 Hypo-osmolality and hyponatremia; J44.1 Chronic obstructive pulmonary disease with (acute) exacerbation; J84.112 Idiopathic pulmonary fibrosis; J44.9 Chronic obstructive pulmonary disease, unspecified; J20.9 Acute bronchitis, unspecified; Z95.0 Presence of cardiac pacemaker; Z95.5 Presence of coronary angioplasty implant and graft; I25.10 Atherosclerotic heart disease of native coronary artery without angina pectoris; N40.0 Benign prostatic hyperplasia without lower urinary tract symptoms; Z51.5 Encounter for palliative care; Z66 Do not resuscitate; E78.5 Hyperlipidemia, unspecified; E11.9 Type 2 diabetes mellitus without complications; I11.0 Hypertensive heart disease with heart failure
CPT/HCPCS: 36415; 36416; 71045; 72192; 80048; 80053; 80202; 82550; 82553; 82805; 83605; 83690; 83880; 84484; 85025; 87040; 87149; 87633; 87798; 93005; 94644; 94660; 96365; 96367; 96375; A4216; J0692; J1100; J1650; J2920; J3370; J3475; J7050; J7506; J7611; J7620